=== PATIENT | male | born 1960 | race Caucasian/White ===

== ENCOUNTER 2017-12-31 21:41 | Inpatient (IN) ==
[2017-12-31] MEDS ORDERED: predniSONE 20 MG TABLET PO ONE (22:05)
[2017-12-31] MEDS ORDERED: Ipratropium/Albuterol Neb 3 ML IH ONE (22:05)
--- NOTE | 2017-12-31 22:11 | Emergency Department Note ---
Disposition Clinical Impression: Acute exacerbation of chronic obstructive airways disease Disposition: Admitted As Inpatient Condition: Fair Referrals: Jose Antonio Morgan MD [Primary Care Provider] - Forms: ED Satisfaction Letter Time of Disposition: 23:27 General Adult HPI - General Chief complaint: ED Shortness of Breath/Dyspnea Stated complaint: CP/SOB Time Seen by Provider: 12/31/17 21:56 Source: patient, family Nursing Notes Reviewed: Yes Vital Signs Reviewed: Yes - History of Present Illness HPI Narrative: History of present illness: 57-year-old male [id number] tobacco history is smoking 20 days ago presents the emergency department with several weeks of the feet swelling dyspnea on exertion and some chest discomfort much worse over the past 2 days. He said he saw his primary care provider week or so ago was diagnosed with "bronchitis and given albuterol which she says "has not done anything for me". Patient does not use oxygen at home. No known coronary artery disease. Heart scores about 4 or 5. Patient has bilateral crackles with some expiratory wheezing bilaterally. Patient denies nausea/vomiting/diarrhea/dysuria/new medications, ill contacts or recent travel. Patient just feels very tired. Pain Scale: 4 - Related Data Home Medications Medication Instructions Recorded Confirmed Elviteg/Cob/Emtri/Tenof Alafen 1 tab PO DAILY 08/25/17 12/16/17 [Genvoya Tablet] Fluconazole [Diflucan] 200 mg PO DAILY 08/25/17 12/16/17 Previous Rx's Medication Instructions Recorded Aspirin 81 mg PO DAILY #30 tab.chew 08/28/17 Clopidogrel [Plavix] 75 mg PO DAILY #30 tablet 08/28/17 Nitroglycerin 0.4 mg SL Q5MIN PRN #30 tab.subl 08/28/17 Fluconazole [Diflucan] 150 mg PO QWEEK #2 tab 12/06/17 Albuterol Sulfate [Albuterol 2 puff IH Q4HR #1 hfa.aer.ad 12/16/17 Inhaler] Levofloxacin [Levaquin] 750 mg PO DAILY #7 tablet 12/16/17 predniSONE [PredniSONE] 60 mg PO DAILY #15 tablet 12/16/17 Allergies Allergy/AdvReac Type Severity Reaction Status Date / Time sulfamethoxazole AdvReac Gastrointestinal Verified 08/25/17 09:04 [From Bactrim] Upset trimethoprim [From Bactrim] AdvReac Gastrointestinal Verified 08/25/17 09:04 Upset All systems ED: reviewed and negative except as stated. Constitutional: Reports: weakness, weight change Cardiovascular: Reports: chest pain Respiratory: Reports: cough, dyspnea, wheezes. Denies: sputum production Past Medical History - Past Medical History Attestation: Yes The following information was validated with the patient. Source: patient Medical history: Reports: arthritis, coronary artery disease, hepatitis, hyperlipidemia, myocardial infarction, other Surgical history: Reports: angioplasty/stent, tonsilectomy, other (Facial surgery, tonsillectomy) Psychiatric history: Reports: no psych history - Social History Smoking Status: Former smoker Smokeless Tobacco Status: No Alcohol use: Reports: none Drug use: Reports: none Physical Exam - General Limitations: no limitations General appearance: alert, in distress - Head Head exam: atraumatic, normocephalic - Eye Eye exam: Present: normal appearance, other (Patient has patch over left eye) - ENT ENT exam: normal exam, mucous membranes dry - Neck Neck exam: Present: normal inspection, full ROM - Chest Chest inspection: Present: normal inspection - Respiratory Respiratory exam: Present: wheezes, other (Bibasilar rales) - Cardiovascular Cardiovascular exam: Present: regular rate, normal rhythm - Abdominal Exam Abdominal exam: Present: soft, Non-Tender - Extremities Exam Extremities exam: Present: full ROM, pedal edema - Expanded Lower Extremity Exam Gait: not tested/not observed - Back Exam Back exam: Present: normal inspection, full ROM - Neurological Exam Neurological exam: Present: alert, oriented X3 - Psychiatric Psychiatric exam: Present: normal affect, normal mood - Skin Skin exam: Present: warm, dry, intact Course - Reevaluation(s) Reevaluation #1: Chest x-ray read by radiology as COPD with hyperinflation but no signs of infiltrate or effusion. CBC within normal limits. Awaiting troponin and chemistry panel. Time: 23:02 Reevaluation #2: ED workup was completed. Labs essentially within normal limits troponin negative BNP negative. Patient stable for short of breath even with minimal exertion. He does not have oxygen at home. Supplemental that is. Patient does prefer to be admitted hospitalist paged admission disposition pending Time: 23:26 Vital Signs Temperature 97.5 F L 12/31/17 21:46 Pulse Rate 98 12/31/17 21:46 Respiratory Rate 12/31/17 21:46 Blood Pressure 151/80 12/31/17 21:46 O2 Sat by Pulse Oximetry 95 12/31/17 21:46 Temperature 97.5 F L 12/31/17 22:35 Pulse Rate 94 12/31/17 22:35 Respiratory Rate 22 12/31/17 22:35 Blood Pressure 164/93 12/31/17 22:35 O2 Sat by Pulse Oximetry 99 12/31/17 22:35 Oxygen Delivery Oxygen Delivery Nasal Cannula Medical Decision Making - Medical Records Medical records reviewed: Yes I reviewed the patient's medical records. - Lab Data Lab results reviewed: Yes I reviewed the patient's lab results. Result diagrams: 12/31/17 22:29 12/31/17 22:29 Lab Results 12/31/17 12/31/17 12/31/17 Range/Units 22:29 22:29 22:29 WBC 5.0 (4.3-11.1) K/mcL RBC 4.45 (4.19-5.50) M/mcL Hgb 13.8 (12.9-16.9) g/dL Hct 40.3 (37.5-50.1) % MCV 90.6 (83.0-100.0) fL MCH 31.0 (28.0-33.3) pg MCHC 34.2 (31.6-35.5) g/dL RDW 14.3 (11.5-14.5) % Plt Count 164 (140-400) K/mcL MPV 9.9 (9.4-12.4) fL Immature Gran % 0.4 (0-4) % Seg Neutrophils % 67.6 % Lymphocytes % 9.8 % Monocytes % 11.0 % Eosinophils % 10.8 % Basophils % 0.4 % Neutrophils # 3.4 (1.6-8.9) K/mcL Lymphocytes # 0.5 L (0.6-4.6) K/mcL Monocytes # 0.6 (0.0-1.3) K/mcL Eosinophils # 0.5 (0.0-0.6) K/mcL Basophils # 0.0 (0.0-0.2) K/mcL Sodium 132 L (136-145) mEq/L Potassium 3.7 (3.5-5.1) mEq/L Chloride 100 (98-107) mEq/L Carbon Dioxide 26 (23-29) mEq/L BUN 18 (6-20) mg/dL Creatinine 1.05 (0.70-1.30) mg/dL Est GFR ( Amer) > 60 (> 60) Est GFR (Non-Af Amer) > 60 (> 60) BUN/Creatinine Ratio 17 (6-26) Glucose 108 H (70-105) mg/dL Calculated Osmolality 276 L (280-300) Lactic Acid 1.0 (0.5-2.2) mmol/L Calcium 9.0 (8.6-10.3) mg/dL Troponin I < 0.03 (< 0.04) ng/mL B-Natriuretic Peptide (Less than 100) pg/mL 12/31/17 Range/Units 22:29 WBC (4.3-11.1) K/mcL RBC (4.19-5.50) M/mcL Hgb (12.9-16.9) g/dL Hct (37.5-50.1) % MCV (83.0-100.0) fL MCH (28.0-33.3) pg MCHC (31.6-35.5) g/dL RDW (11.5-14.5) % Plt Count (140-400) K/mcL MPV (9.4-12.4) fL Immature Gran % (0-4) % Seg Neutrophils % % Lymphocytes % % Monocytes % % Eosinophils % % Basophils % % Neutrophils # (1.6-8.9) K/mcL Lymphocytes # (0.6-4.6) K/mcL Monocytes # (0.0-1.3) K/mcL Eosinophils # (0.0-0.6) K/mcL Basophils # (0.0-0.2) K/mcL Sodium (136-145) mEq/L Potassium (3.5-5.1) mEq/L Chloride (98-107) mEq/L Carbon Dioxide (23-29) mEq/L BUN (6-20) mg/dL Creatinine (0.70-1.30) mg/dL Est GFR ( Amer) (> 60) Est GFR (Non-Af Amer) (> 60) BUN/Creatinine Ratio (6-26) Glucose (70-105) mg/dL Calculated Osmolality (280-300) Lactic Acid (0.5-2.2) mmol/L Calcium (8.6-10.3) mg/dL Troponin I (< 0.04) ng/mL B-Natriuretic Peptide 48 (Less than 100) pg/mL - Radiology Data Radiology results reviewed: Yes I reviewed the patient's radiology results. - EKG Data EKG #1 EKG attestation: Yes I reviewed and interpreted this EKG. EKG results narrative: Twelve-lead EKG interpreted without the benefit of Cardiologic assistance shows the following: Sinus rhythm at 95 bpm. Incomplete right bundle branch block. Left ventricular hypertrophy by voltage criteria. Nonspecific ST-T changes. However no acute ischemic changes. No acute changes when compared to prior EKG dated 12/16/17.
[2017-12-31 22:44] LABS: Basophils % 0.4 %; Eosinophils # 0.5 K/mcL (0.0-0.6); Eosinophils % 10.8 %; Hematocrit 40.3 % (37.5-50.1); Hemoglobin 13.8 g/dL (12.9-16.9); Immature Granulocytes % 0.4 % (0-4); Lymphocytes # 0.5 K/mcL (0.6-4.6); Lymphocytes % 9.8 %; Mean Corpuscular HGB Conc 34.2 g/dL (31.6-35.5); Mean Corpuscular Volume 90.6 fL (83.0-100.0); Mean Platelet Volume 9.9 fL (9.4-12.4); Monocytes # 0.6 K/mcL (0.0-1.3); Neutrophils # 3.4 K/mcL (1.6-8.9); Platelet Count 164 K/mcL (140-400); Red Blood Count 4.45 M/mcL (4.19-5.50); Red Cell Distribution Width 14.3 % (11.5-14.5); Segmented Neutrophils % 67.6 %
[2017-12-31 23:05] LABS: BUN/Creatinine Ratio 17 (6-26); Blood Urea Nitrogen 18 mg/dL (6-20); Carbon Dioxide 26 mEq/L (23-29); Chloride 100 mEq/L (98-107); Glucose 108 mg/dL (70-105); Osmolality,Calculated 276 (280-300); Potassium 3.7 mEq/L (3.5-5.1); Sodium 132 mEq/L (136-145); eGFR For Non-African Americans > 60 (> 60)
[2017-12-31 23:07] LABS: Troponin I < 0.03 ng/mL (< 0.04)
[2018-01-01] MEDS ORDERED: Naloxone 0.4 MG/ML INJ IVP PRN (02:08)
[2018-01-01] MEDS ORDERED: Acetaminophen 325 MG TABLET PO PRN (02:08)
[2018-01-01] MEDS ORDERED: Nitroglycerin 0.4 MG TAB.SUBL SL PRN (02:09)
--- NOTE | 2018-01-01 02:14 | Internal Med History&Physical ---
Date of Encounter: 01/01/18 Time of Encounter: 02:11 Internal Medicine - H&P: HPI Chief complaint: shortness of breath History of present illness: Mr. Coats is a 57 year old male hx HIV and hep C presents with SOB and two weeks of wheezing and productive cough. He denies fever and chills - his fatigue is at baseline. His chest feels tight but no sharp pain. He came in today because of left arm and leg tingling that has resolved. He saw PCP one week ago and was diagnosed with bronchitis and give albuterol inhaler that did not help. He reports increasing pedal edema in last few days. In ED vitals, T 97.5 HR 98 Bp 151/80 RR22 and 97% on 2L. WBC 5, Na 132. Troponin and BNP normal. He remained on oxygen NC and given prednisone 60 mg and duoneb treatment. His last CD4 count at [facility] was 27 and he is on prophylactic Bactrim and azithromycin. He sees Dr Jose Antonio Peraza for treatment of HIV with Jammie and DR Marvin Burden at [facility] for Hep C with ciro. He has history of IV drug abuse and incarceration but has been clean since . He as diagnosed with both 4 months ago after screening. Quit smoking three weeks ago but has [id number] . Denies current EtOH use. He doesn' t know if he has never been diagnosed with COPD or CHF but last echo EF45-50. He had [place] on 08-25 followed by [facility] and staged stenting completed on 09-23. 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 Family history of father with NY at 53. He admits to constipation with last BM a few days ago without pain. Admits to increased urination since started lasix. Past Med Surg Social Fam HX - Past Medical History Medical history: arthritis, coronary artery disease, hepatitis, hyperlipidemia, myocardial infarction, other Additional medical history: hx bells palsy Psychiatric history: no psych history - Past Surgical History Surgical History: angioplasty/stent, tonsilectomy, other Additional surgical history: facial surgery - Social History Smoking Status: Former smoker Smokeless Tobacco Status: No Alcohol use: none Drug use: none - Family History Mother Living Status: Still Living Hx Family Medical Disorders: (CKD) Father Living Status: Hx Family Cardiac Disorders: Yes Internal Medicine - H&P: Meds Aspirin 81 mg PO DAILY #30 tab.chew 08/28/17 [Rx] Clopidogrel [Plavix] 75 mg PO DAILY #30 tablet 08/28/17 [Rx] Nitroglycerin 0.4 mg SL Q5MIN PRN #30 tab.subl 08/28/17 [Rx] Albuterol Sulfate [Albuterol Inhaler] 2 puff IH Q4HR #1 hfa.aer.ad 12/16/17 [Rx] Atorvastatin [Lipitor] 20 mg PO HS 12/31/17 [History] Azithromycin [Zithromax] 1,200 mg PO QWEEK 12/31/17 [History] Furosemide [Lasix] 20 mg PO BID 12/31/17 [History] Sulfamethoxazole/Trimeth DS [Bactrim DS] 1 each PO BID 12/31/17 [History] 3 Allergy/AdvReac Type Severity Reaction Status Date / Time sulfamethoxazole AdvReac Gastrointestinal Verified 12/31/17 23:52 [From Bactrim] Upset trimethoprim [From Bactrim] AdvReac Gastrointestinal Verified 12/31/17 23:52 Upset All Systems PM: A 10-system review of systems was performed and is negative for pertinent findings except as documented above in the HPI. - Constitutional Constitutional: no fatigue - Cardiovascular Cardiovascular ROS IM: dyspnea, no chest pain, no diaphoresis, no lightheadedness, no palpitations, no syncope - Respiratory Respiratory: cough, dyspnea, wheezing, excessive phlegm production - Gastrointestinal Gastrointestinal: constipation, no diarrhea, no nausea, no vomiting - Genitourinary Genitourinary ROS male: urinary frequency, no dysuria, no hematuria, no urinary incontinence - Musculoskeletal Musculoskeletal ROS IM: no numbness, no tingling - Integumentary Integumentary IM: no new lesions, no non-healing lesions, no rash - Neurological Neurological ROS: no frequent falls, no headache(s) - Constitutional Vitals: Temp Pulse Resp BP Pulse Ox 97.5 F L 95 14 139/82 97 01/01/18 00:14 01/01/18 00:14 01/01/18 00:14 01/01/18 00:14 01/01/18 00:14 General appearance: Present: A&O X 3, no acute distress, answers questions appropriately Exam: Patient has patch covering left eye and left face sagging. - Head Head exam: Present: atraumatic, normocephalic - ENT ENT exam: Present: mucous membranes moist, normal oropharynx - Respiratory Respiratory exam: Present: accessory muscle use, rales, wheezes. Absent: respiratory distress - Cardiovascular Cardiovascular exam: Present: diastolic murmur, RRR - GI/Abdominal GI/Abdominal exam: Present: normal bowel sounds, soft. Absent: mass, tenderness - Extremities Exam Extremities exam: Present: full ROM, pedal edema, radial pulses palpable and symmetrical. Absent: tenderness Additional comments: +1 pitting to the ankles bilat - Psychiatric Psychiatric exam: Present: normal affect, normal mood - Skin Skin exam: Absent: diaphoretic, erythema, excoriation Internal Med - H&P Results - Labs CBC & Chem 7: 12/31/17 22:29 12/31/17 22:29 - Assessment and plan (1) Acute respiratory failure with hypoxia Current Visit: Yes Status: Acute Assessment and plan: Most likely due to acute on CHF or undiagnosed COPD exacerbation but can not rule out PNA with particular concern for PCP. - continue oxygen - duonebs - prednisone 40mg daily Patient would benefit from transfer to hospital with ID specializing in HIV infections. He has previously been treated at [facility] and is amenable to transfer. (2) Acute exacerbation of chronic obstructive airways disease Current Visit: Yes Status: Suspected Assessment and plan: suspected based on symptoms and smoking history- may need out patient PFTs (3) HIV (human immunodeficiency virus infection) Current Visit: No Status: Acute Assessment and plan: Recent CD4 count of 27 at [facility] per patient, verified count of 48 on 11-17-17. If he has developed PCP then qualifies as AIDs -continue prophylactic bactrim and azithromycin (4) CHF (congestive heart failure) Current Visit: Yes Status: Acute Assessment and plan: BNP 48. May contribute to shortness of breath but not convicted of acute decompensation - continue Lasix 20 bid - consider addition of beta tip Qualifiers: Heart failure type: systolic Heart failure chronicity: chronic Qualified Code(s): I50.22 - Chronic systolic (congestive) heart failure (5) Constipation Current Visit: Yes Status: Acute Assessment and plan: miralax Qualifiers: Constipation type: unspecified constipation type Qualified Code(s): K59.00 - Constipation, unspecified (6) DVT prophylaxis Current Visit: Yes Status: Acute Assessment and plan: plavix - Time Spent With Patient Total time spent is greater than 50% in coordination of care (as documented) at patient's floor/unit and/or counseling patient: Greater than 35 minutes
[2018-01-01] MEDS: Ipratropium/Albuterol Neb 3 ML IH SCH ×4 (04:39→23:21)
[2018-01-01] MEDS ORDERED: Doxycycline 100 MG CAPSULE PO SCH (09:00)
[2018-01-01] MEDS: predniSONE 20 MG TABLET PO SCH (09:23)
[2018-01-01] MEDS: Sulfamethoxazole/Trimeth DS 1 EACH TABLET PO SCH ×2 (09:25→20:07)
[2018-01-01] MEDS: Furosemide 20 MG TABLET PO SCH ×2 (09:25→15:22)
[2018-01-01] MEDS: Aspirin 81 MG TAB.CHEW PO SCH (09:25)
--- NOTE | 2018-01-01 14:02 | Event Note ---
<Deny Alonso - Last Filed: 01/01/18 15:31> Date of Encounter: 01/01/18 I examined this patient and my medical decision-making was reviewed with the Resident Physician on 01/01/18. I agree with the documented findings, disposition and treatment plan as described except to the extent set forth below. Mr Coats is currently in observation for presumed COPD exacerbation. Exam alert. Comfortable at this time Agree with assessment and plan as above and in H&P Pt's physician who manages HIV is at [facility] (ID physician). <Rosalba MuhammadRoger - Last Filed: 01/01/18 19:34> Date of Encounter: 01/01/18 Time of Encounter: 09:45 S: Admitted for acute resp failure with hypoxia likely 2/2 obstructive exacerbation (does endorse 43 pack year history), he states the breathing treatments help but he gets short of breath on ambulation (unremarkable bnp and other basic chemistries, no cardiomegaly on cxr). O: Head exam: Present: atraumatic, normocephalic Eye exam: Present: PERRL, conjuntiva pink, sclera anicteric, EOMI Mouth exam: no plaques Neck exam Present: supple, trachea midline. Absent: lymphadenopathy Respiratory exam: Present: bilateral wheeze, diminished breath sounds bilaterally, normal chest wall excursion. Cardiovascular exam: Present: RRR, +S1, +S2. Absent: diastolic murmur, gallop, rubs, systolic murmur GI/Abdominal exam: Present: normal bowel sounds, soft, no peritoneal signs. Absent: distended, tenderness Extremities exam: Present: warm, radial pulses palpable and symmetrical. Absent : calf tenderness, cyanotic, pedal edema Neurological exam: Present: CN II-XII intact, oriented X3, no focal deficits. Absent: facial droop, speech deficit Skin exam: Present: dry, intact, heavy scale on face and arms A&P: (1) Acute respiratory failure with hypoxia Most likely due to acute on chronic undiagnosed COPD exacerbation but can not rule out PNA with particular concern for PCP. Continue oxygen duonebs prednisone 40mg daily Plan to keep overnight, continue [facility]Y [facility]OWER (2) Acute exacerbation of chronic obstructive airways disease hyperinflated lungs on CXR suspected based on symptoms and smoking history 43 pack year history, last tobacco product 1 month ago (3) HIV (human immunodeficiency virus infection) Recent CD4 count of 27 at [facility] per patient, verified count of 48 on 11-17-17. If he has developed PCP then qualifies as AIDs Continue prophylactic bactrim and azithromycin Will give Truvada today as this is in our dispensary. He plans to have family bring his Genvoya tomorrow AM (4) Hep C Follows Dr. Trent in [facility] (ID) He plans to have family friend [facility] tomorrow AM (5) Seborrheic Dermatitis Continuing Ketoconazole 2% cream, shampoo, and low dose steroid cream (6) DVT prophylaxis plavix
[2018-01-01] MEDS: Nystatin SUSP 5 ML UD.LIQ PO SCH ×3 (15:21→20:09)
[2018-01-01] MEDS ORDERED: LEDIPASVIR PO SCH (15:45)
[2018-01-01] MEDS ORDERED: [UNRECOGNIZED DRUG - OTHER] PO SCH (15:45)
[2018-01-01] MEDS ORDERED: SOFOSBUVIR PO SCH (15:45)
[2018-01-01] MEDS ORDERED: [UNRECOGNIZED DRUG - OTHER] PO SCH (15:45)
[2018-01-01] MEDS ORDERED: Ketoconazole Shampoo 120 ML BOTTLE TP PRN (16:12)
[2018-01-01] MEDS: Ketoconazole 2% CRM 15 GM TUBE TP SCH (17:10)
[2018-01-02] MEDS: Ipratropium/Albuterol Neb 3 ML IH SCH ×4 (04:48→22:22)
[2018-01-02 07:34] LABS: Basophils % 0.7 %; Eosinophils # 0.2 K/mcL (0.0-0.6); Eosinophils % 4.9 %; Hematocrit 34.6 % (37.5-50.1); Immature Granulocytes % 0.3 % (0-4); Lymphocytes # 0.4 K/mcL (0.6-4.6); Lymphocytes % 13.8 %; Mean Corpuscular HGB Conc 33.2 g/dL (31.6-35.5); Mean Corpuscular Volume 90.3 fL (83.0-100.0); Mean Platelet Volume 9.7 fL (9.4-12.4); Monocytes # 0.3 K/mcL (0.0-1.3); Monocytes % 11.1 %; Neutrophils # 2.1 K/mcL (1.6-8.9); Platelet Count 147 K/mcL (140-400); Red Blood Count 3.83 M/mcL (4.19-5.50); Red Cell Distribution Width 14.5 % (11.5-14.5); Segmented Neutrophils % 69.2 %
[2018-01-02 07:36] LABS: Hemoglobin 11.5 g/dL (12.9-16.9)
[2018-01-02 07:59] LABS: Alanine Aminotransferase 12 Units/L (7-52); Albumin 2.9 g/dL (3.5-5.7); Albumin/Globulin Ratio 0.8 (1.1-2.2); Alkaline Phosphatase 78 Units/L (34-104); Aspartate Amino Transferase 15 Units/L (13-39); BUN/Creatinine Ratio 19 (6-26); Bilirubin,Total 0.3 mg/dL (0.3-1.0); Blood Urea Nitrogen 18 mg/dL (6-20); Calcium 8.7 mg/dL (8.6-10.3); Carbon Dioxide 29 mEq/L (23-29); Chloride 104 mEq/L (98-107); Globulin 3.5 g/dL (2.4-3.5); Glucose 98 mg/dL (70-105); Osmolality,Calculated 286 (280-300); Potassium 3.7 mEq/L (3.5-5.1); Sodium 137 mEq/L (136-145); Total Protein 6.4 g/dL (6.4-8.9); eGFR For Non-African Americans > 60 (> 60)
--- NOTE | 2018-01-02 08:45 | Internal Med Progress Note ---
<Deny Alonso - Last Filed: 01/02/18 17:54> Hospitalist Progress Note - Encounter Date of Encounter: 01/02/18 - Exam Vitals: Temp Pulse Resp BP Pulse Ox 97.4 F L 99 16 138/67 94 01/02/18 11:49 01/02/18 11:49 01/02/18 11:49 01/02/18 11:49 01/02/18 11:49 - Assessment and Plan (1) Acute respiratory failure with hypoxia Current Visit: Yes Status: Acute (2) Acute exacerbation of chronic obstructive airways disease Current Visit: Yes Status: Acute (3) HIV (human immunodeficiency virus infection) Current Visit: No Status: Chronic (4) CAD (coronary artery disease) Current Visit: No Status: Chronic (5) Severe protein-calorie malnutrition Current Visit: Yes Status: Suspected - Time Spent with Patient Total time spent is greater than 50% in coordination of care (as documented) at patient's floor/unit and/or counseling patient: Internal Medicine: Result - Labs CBC & Chem 7: 01/02/18 07:01 01/02/18 07:01 Labs: Short CBC 01/02/18 Range/Units 07:01 WBC 3.1 L (4.3-11.1) K/mcL Hgb 11.5 L D (12.9-16.9) g/dL Hct 34.6 L (37.5-50.1) % Plt Count 147 (140-400) K/mcL Neutrophils # 2.1 (1.6-8.9) K/mcL BMP 01/02/18 07:01 Sodium 137 Potassium 3.7 Chloride 104 Carbon Dioxide 29 BUN 18 Creatinine 0.95 Glucose 98 Calcium 8.7 Liver Function 01/02/18 Range/Units 07:01 Total Bilirubin 0.3 (0.3-1.0) mg/dL AST 15 (13-39) Units/L ALT 12 (7-52) Units/L Alkaline Phosphatase 78 (34-104) Units/L Albumin 2.9 L (3.5-5.7) g/dL Consult Discharge Plan - Plan Referrals: Jose Antonio Morgan MD [Primary Care Provider] - (Requested a follow up appointment in 7-10 days. ) Prescriptions: Tiotropium [Spiriva] 18 mcg IH DAILY #30 capsule - Attending Attestation I examined this patient and my medical decision-making was reviewed with the Resident Physician on 01/02/18. I agree with the documented findings, disposition and treatment plan as described except to the extent set forth below. Mr Coats is currently admitted for presumed acute exac COPD. He remains moderate to high risk due to potential for worsening clinical status. Mr Coats is resting comfortably. No fever or chills. No CP. Breathing has improved with treatment. Still with cough. No GI issues. Exam alert Comfortable Mucus membranes dry Heart reg No wheeze now Abd soft No edema I/P 1. Exac COPD 2. Hypoxic resp failure - check for home oxygen. Further diagnoses and plan as above. <Roger Muhammad - Last Filed: 01/02/18 18:17> Hospitalist Progress Note - Encounter Date of Encounter: 01/02/18 Time of Encounter: 11:30 - Subjective Interval History: Mr. Coats slept well last night but wheezes/coughs when talking is prolonged, lying flat worsens his symptoms. Unremarkable BNP, no cardiomegaly on CXR. No abd pain, joint pain, new skin lesions, or oral plaques. - Exam Vitals: Temp Pulse Resp BP Pulse Ox 97.7 F 83 16 113/67 96 01/02/18 07:55 01/02/18 07:55 01/02/18 07:55 01/02/18 07:55 01/02/18 07:55 Exam: Head exam: Present: atraumatic, normocephalic Eye exam: Present: PERRL, conjuntiva pink, sclera anicteric, EOMI, eye patch L Face exam: facial droop chronic L, hx schwannoma Mouth exam: no plaques Neck exam Present: supple, trachea midline. Absent: lymphadenopathy Respiratory exam: Present: bilateral wheeze, diminished breath sounds bilaterally, normal chest wall excursion. Cardiovascular exam: Present: RRR, +S1, +S2. Absent: diastolic murmur, gallop, rubs, systolic murmur GI/Abdominal exam: Present: normal bowel sounds, soft, no peritoneal signs. Absent: distended, tenderness Extremities exam: Present: warm, radial pulses palpable and symmetrical. Absent : calf tenderness, cyanotic, pedal edema Neurological exam: Present: oriented X3, facial asymmetry known. No speech deficit Skin exam: Present: dry, intact, heavy scale on face and arms - Assessment and Plan (1) Acute respiratory failure with hypoxia Current Visit: Yes Status: Acute Assessment and Plan: Most likely due to acute on chronic undiagnosed COPD exacerbation but can not rule out PNA with particular concern for PCP. Continue oxygen duonebs prednisone 40mg daily O2 walk test today Spiriva Rx in hard chart for discharge possible tomorrow (has [facility] appt with Dr. Aguayo, Infectious Disease Wednesday) (2) HIV (human immunodeficiency virus infection) Current Visit: No Status: Chronic Assessment and Plan: Recent CD4 count of 27 at [facility] per patient, verified count of 48 on 11-17-17. If he has developed PCP then qualifies as AIDs Continue prophylactic bactrim and azithromycin Truvada until pt can get his home Genvoya (states family friend is bring in today 01/02) (3) Chronic hepatitis C Current Visit: Yes Status: Acute Assessment and Plan: [facility] W[facility]U ? home med, family friend arriving today per patient DVT Prophylaxis: plavix - Time Spent with Patient Total time spent is greater than 50% in coordination of care (as documented) at patient's floor/unit and/or counseling patient: Internal Medicine: Result - Labs CBC & Chem 7: 01/02/18 07:01 01/02/18 07:01 Labs: Short CBC 01/02/18 Range/Units 07:01 WBC 3.1 L (4.3-11.1) K/mcL Hgb 11.5 L D (12.9-16.9) g/dL Hct 34.6 L (37.5-50.1) % Plt Count 147 (140-400) K/mcL Neutrophils # 2.1 (1.6-8.9) K/mcL BMP 01/02/18 07:01 Sodium 137 Potassium 3.7 Chloride 104 Carbon Dioxide 29 BUN 18 Creatinine 0.95 Glucose 98 Calcium 8.7 Liver Function 01/02/18 Range/Units 07:01 Total Bilirubin 0.3 (0.3-1.0) mg/dL AST 15 (13-39) Units/L ALT 12 (7-52) Units/L Alkaline Phosphatase 78 (34-104) Units/L Albumin 2.9 L (3.5-5.7) g/dL <Deny Alonso - Raul Filed: 01/02/18 17:54> (4) CAD (coronary artery disease) Qualifiers: Coronary Disease-Associated Artery/Lesion type: [place] artery [place] vs. transplanted heart: [place] heart Associated angina: without angina Qualified Code(s): I25.10 - Atherosclerotic heart disease of [place] coronary artery without angina pectoris
[2018-01-02] MEDS: Nystatin SUSP 5 ML UD.LIQ PO SCH ×4 (08:48→21:40)
[2018-01-02] MEDS: Sulfamethoxazole/Trimeth DS 1 EACH TABLET PO SCH ×2 (08:49→21:40)
[2018-01-02] MEDS: predniSONE 20 MG TABLET PO SCH (08:49)
[2018-01-02] MEDS: Aspirin 81 MG TAB.CHEW PO SCH (08:49)
[2018-01-02] MEDS: Furosemide 20 MG TABLET PO SCH ×2 (08:49→17:14)
[2018-01-02] MEDS: Ketoconazole 2% CRM 15 GM TUBE TP SCH (08:51)
[2018-01-03] MEDS: Ipratropium/Albuterol Neb 3 ML IH SCH ×4 (05:29→22:31)
[2018-01-03 07:15] LABS: Hematocrit 36.9 % (37.5-50.1); Hemoglobin 12.2 g/dL (12.9-16.9); Mean Corpuscular HGB Conc 33.1 g/dL (31.6-35.5); Mean Corpuscular Hemoglobin 30.3 pg (28.0-33.3); Mean Corpuscular Volume 91.8 fL (83.0-100.0); Mean Platelet Volume 10.2 fL (9.4-12.4); Platelet Count 145 K/mcL (140-400); Red Blood Count 4.02 M/mcL (4.19-5.50); Red Cell Distribution Width 14.4 % (11.5-14.5)
[2018-01-03 07:37] LABS: BUN/Creatinine Ratio 21 (6-26); Blood Urea Nitrogen 20 mg/dL (6-20); Calcium 8.7 mg/dL (8.6-10.3); Carbon Dioxide 28 mEq/L (23-29); Chloride 104 mEq/L (98-107); Glucose 92 mg/dL (70-105); Osmolality,Calculated 282 (280-300); Potassium 3.9 mEq/L (3.5-5.1); Sodium 135 mEq/L (136-145); eGFR For Non-African Americans > 60 (> 60)
[2018-01-03] MEDS: Aspirin 81 MG TAB.CHEW PO SCH (08:00)
[2018-01-03] MEDS: Furosemide 20 MG TABLET PO SCH ×2 (08:00→17:39)
[2018-01-03] MEDS: predniSONE 20 MG TABLET PO SCH (08:00)
[2018-01-03] MEDS: Ketoconazole 2% CRM 15 GM TUBE TP SCH (08:00)
[2018-01-03] MEDS: Sulfamethoxazole/Trimeth DS 1 EACH TABLET PO SCH ×2 (08:00→19:58)
[2018-01-03] MEDS: Nystatin SUSP 5 ML UD.LIQ PO SCH ×4 (08:00→19:58)
--- NOTE | 2018-01-03 08:30 | Discharge Summary ---
Date of Encounter: 01/03/18 Time of Encounter: 08:00 - Discharge Diagnosis (1) Acute exacerbation of chronic obstructive airways disease Priority: Primary Status: Acute (2) Acute respiratory failure with hypoxia Priority: Primary Status: Acute (3) HIV (human immunodeficiency virus infection) Priority: Secondary Status: Chronic (4) Chronic hepatitis C Priority: Secondary Status: Acute Hospital course: Mr. Coats is a 57 year old male PMHx HIV, STEMI, CAD, chronic smoker, COPD, chronic hepatitis C, IVD user presented with SOB breath and wheezing of 2 weeks. Last CD count at [facility] was 27 and he is on prophylactic Bactrim and azithromycin. He is on Genvoya for HIV ad Harboni for Hep C. His wheezing and SOB has improved with duonebs, O2 and prednisone but he continues to be SOB and tachycardic with ambulation and when not on O2. Today, he reports that he is doing well on 2L O2, but feels worried that his SOB will worsen if he goes home without oxygen. He has appointment for endoscopy tomorrow. He denies confusion, headaches, blurry vision, CP, abdominal pain, diarrhea, f/c/n/v. Discharge discussed with: patient Time spent discussing smoking cessation with patient: more than 10 minutes - Time Spent with Patient Total time spent providing and/or coordinating discharge services: Greater than 30 minutes - Discharge Medications Prescriptions: Tiotropium [Spiriva] 18 mcg IH DAILY #30 capsule Home Medications: Aspirin 81 mg PO DAILY #30 tab.chew 08/28/17 [Rx] Clopidogrel [Plavix] 75 mg PO DAILY #30 tablet 08/28/17 [Rx] Nitroglycerin 0.4 mg SL Q5MIN PRN #30 tab.subl 08/28/17 [Rx] Albuterol Sulfate [Albuterol Inhaler] 2 puff IH Q4HR #1 hfa.aer.ad 12/16/17 [Rx] Atorvastatin [Lipitor] 20 mg PO HS 12/31/17 [History] Azithromycin [Zithromax] 1,200 mg PO QWEEK 12/31/17 [History] Furosemide [Lasix] 20 mg PO BID 12/31/17 [History] Sulfamethoxazole/Trimeth DS [Bactrim DS] 1 tab PO BID 12/31/17 [History] Elviteg/Cob/Emtri/Tenof Alafen [Genvoya Tablet] 1 tab PO DAILY 01/01/18 [History ] Ledipasvir/Sofosbuvir [Harvoni 90-400 mg Tablet] 1 tab PO DAILY 01/01/18 [ History] Tiotropium [Spiriva] 18 mcg IH DAILY #30 capsule 01/02/18 [Rx] Allergies/Adverse Reactions: 3 Allergy/AdvReac Type Severity Reaction Status Date / Time sulfamethoxazole AdvReac Gastrointestinal Verified 12/31/17 23:52 [From Bactrim] Upset trimethoprim [From Bactrim] AdvReac Gastrointestinal Verified 12/31/17 23:52 Upset Date of admission: 01/01/18 17:37 Primary care physician: Jose Antonio Morgan MD Discharging clinician: Segundo Figueroa Anticipated date of discharge: 01/03/18 - Constitutional Vitals: Temp Pulse Resp BP Pulse Ox 97.8 F 98 5 112/64 94 01/03/18 06:42 01/03/18 06:42 01/03/18 06:42 01/03/18 06:42 01/03/18 06:42 General appearance: Present: A&O X 3, no acute distress, answers questions appropriately - Head Head exam: Present: atraumatic - Respiratory Respiratory exam: Present: wheezes (wheezing bilaterally ). Absent: accessory muscle use, rales - Cardiovascular Cardiovascular exam: Present: RRR, +S1, +S2. Absent: systolic murmur - GI/Abdominal GI/Abdominal exam: Present: normal bowel sounds, soft. Absent: guarding - Extremities Exam Extremities exam: Present: warm, radial pulses palpable and symmetrical - Neurological Exam Neurological exam: Present: alert, CN II-XII intact, oriented X3, no focal deficits. Absent: motor sensory deficit, pronater drift - Psychiatric Psychiatric exam: Present: normal affect, normal mood - Skin Skin exam: Present: dry, intact, normal color - Patient Status Disposition: Home, Self-Care Condition: Fair Functional capacity at discharge: independent ambulation Overall status at discharge: patient is progressing back to baseline - Discharge Instructions Follow Up With: Jose Antonio Morgan MD [Primary Care Provider] - (Requested a follow up appointment in 7-10 days. ) - Diet and Activity Activity: resume usual activities as tolerated, wear oxygen at all times, wear oxygen at night Diet: advance to your usual diet
--- NOTE | 2018-01-03 14:23 | Internal Med Progress Note ---
<Segundo Figueroa - Last Filed: 01/03/18 14:18> Hospitalist Progress Note - Encounter Date of Encounter: 01/03/18 Time of Encounter: 09:30 - Subjective Interval History: Mr. Coats is a 57 year old male PMHx HIV, STEMI, CAD, chronic smoker, COPD, chronic hepatitis C, IVD user presented with SOB breath and wheezing of 2 weeks. Last CD count at [facility] was 27 and he is on prophylactic Bactrim and azithromycin. He is on Genvoya for HIV ad Harboni for Hep C. His wheezing and SOB has improved with duonebs, O2 and prednisone but he continues to be SOB and tachycardic with ambulation and when not on O2. Today, he reports that he is doing well on 2L O2, but feels worried that his SOB will worsen if he goes home without oxygen. He has appointment for endoscopy tomorrow. He denies confusion, headaches, blurry vision, CP, abdominal pain, diarrhea, f/c/n/v. Requesting to have endoscopy done here at [facility] instead. - Exam Vitals: Temp Pulse Resp BP Pulse Ox 97.8 F 98 16 112/64 93 01/03/18 06:42 01/03/18 06:42 01/03/18 10:51 01/03/18 06:42 01/03/18 10:51 Exam: General appearance: Present: A&O X 3, no acute distress, answers questions appropriately - Head Head exam: Present: atraumatic - Respiratory Respiratory exam: Present: wheezes (wheezing bilaterally ). Absent: accessory muscle use, rales - Cardiovascular Cardiovascular exam: Present: RRR, +S1, +S2. Absent: systolic murmur - GI/Abdominal GI/Abdominal exam: Present: normal bowel sounds, soft. Absent: guarding - Extremities Exam Extremities exam: Present: warm, radial pulses palpable and symmetrical - Neurological Exam Neurological exam: Present: alert, CN II-XII intact, oriented X3, no focal deficits. Absent: motor sensory deficit, pronater drift - Psychiatric Psychiatric exam: Present: normal affect, normal mood - Skin Skin exam: Present: dry, intact, normal color - Assessment and Plan (1) Acute exacerbation of chronic obstructive airways disease Current Visit: Yes Status: Acute Assessment and Plan: Improved. Patient did not qualify for home O2. Will continue him on O2 as needed. Continue with Prednisone day #3, duonebs. Patient to have EGD performed her at [facility] instead of [facility] per his request. Retirement Sales Consultant has been informed. He is able to obtain Harvoni therapy for chronic hepatitis C here. Continue with Bactrim for PCP prophylaxis. (2) Acute respiratory failure with hypoxia Current Visit: Yes Status: Acute Assessment and Plan: See above. (3) HIV (human immunodeficiency virus infection) Current Visit: No Status: Chronic Assessment and Plan: Continue with azithromycin and bactrim for prophylaxis. Harvoni for Chronic hep C. Continue with Truvada therapy. Ketoconazole for possible GI fungal/debbie infection. Pending EGD. (4) Chronic hepatitis C Current Visit: Yes Status: Acute Assessment and Plan: See above. Pending hep C quant. DVT Prophylaxis: plavix - Time Spent with Patient Total time spent is greater than 50% in coordination of care (as documented) at patient's floor/unit and/or counseling patient: Greater than 35 minutes Plan of Care Discussed with: patient Internal Medicine: Result - Labs CBC & Chem 7: 01/03/18 06:37 01/03/18 06:37 Labs: Short CBC 01/03/18 Range/Units 06:37 WBC 3.1 L (4.3-11.1) K/mcL Hgb 12.2 L (12.9-16.9) g/dL Hct 36.9 L (37.5-50.1) % Plt Count 145 (140-400) K/mcL BMP 01/03/18 06:37 Sodium 135 L Potassium 3.9 Chloride 104 Carbon Dioxide 28 BUN 20 Creatinine 0.94 Glucose 92 Calcium 8.7 Consult Discharge Plan - Plan Instructions: Tiotropium (By breathing) Referrals: Jose Antonio Morgan MD [Primary Care Provider] - 01/05/18 1:20 pm (Requested a follow up appointment in 7-10 days. ) Prescriptions: Tiotropium [Spiriva] 18 mcg IH DAILY #30 capsule <Deny Alonso - Last Filed: 01/03/18 15:03> Hospitalist Progress Note - Encounter Date of Encounter: 01/03/18 - Exam Vitals: Temp Pulse Resp BP Pulse Ox 97.8 F 98 16 112/64 93 01/03/18 06:42 01/03/18 06:42 01/03/18 10:51 01/03/18 06:42 01/03/18 10:51 - Assessment and Plan (1) Acute respiratory failure with hypoxia Current Visit: Yes Status: Ruled-out (2) Acute exacerbation of chronic obstructive airways disease Current Visit: Yes Status: Acute (3) HIV (human immunodeficiency virus infection) Current Visit: No Status: Chronic (4) CAD (coronary artery disease) Current Visit: No Status: Chronic (5) Severe protein-calorie malnutrition Current Visit: Yes Status: Suspected (6) Hepatitis C Current Visit: Yes Status: Chronic - Time Spent with Patient Total time spent is greater than 50% in coordination of care (as documented) at patient's floor/unit and/or counseling patient: Internal Medicine: Result - Labs CBC & Chem 7: 01/03/18 06:37 01/03/18 06:37 Labs: Short CBC 01/03/18 Range/Units 06:37 WBC 3.1 L (4.3-11.1) K/mcL Hgb 12.2 L (12.9-16.9) g/dL Hct 36.9 L (37.5-50.1) % Plt Count 145 (140-400) K/mcL BMP 01/03/18 06:37 Sodium 135 L Potassium 3.9 Chloride 104 Carbon Dioxide 28 BUN 20 Creatinine 0.94 Glucose 92 Calcium 8.7 - Attending Attestation I examined this patient and my medical decision-making was reviewed with the Resident Physician on 01/03/18. I agree with the documented findings, disposition and treatment plan as described except to the extent set forth below. Mr Coats is currently admitted for presumed COPD exacerbation. He remains moderate to high risk due to potential for worsening clinical status. Mr Coats is still very dyspneic he feels. He did not qualify for oxygen. No CP. No fever or chills. Still coughing. Review of chart shows he had L arm and chest pain. Will do more cardiac work up. Exam alert Comfortable Mucus membranes dry Heart reg Lungs clear at this time Abd soft I/P 1. COPD exac 2. Chest pain - check echo. GI eval for possible candidal esophagitis. Further diagnoses and plan as above. <Deny Alonso A - Last Filed: 01/03/18 15:03> (4) CAD (coronary artery disease) Qualifiers: Coronary Disease-Associated Artery/Lesion type: [place] artery [place] vs. transplanted heart: [place] heart Associated angina: without angina Qualified Code(s): I25.10 - Atherosclerotic heart disease of [place] coronary artery without angina pectoris (6) Hepatitis C Qualifiers: Viral hepatitis chronicity: chronic Hepatic coma status: without hepatic coma Qualified Code(s): B18.2 - Chronic viral hepatitis C
--- NOTE | 2018-01-03 17:41 | Electrocardiograph Report ---
[place] [id number] Test Date: 2017-12-31 Pat Name: Cole Coats Department: 104 Room: 3B Gender: M Senior [employer] Developer: : 1960 Requested By: Neno Bardales Order Number: [id number] Reading MD: Gladys Pineda Measurements Intervals [place] Rate: 95 P: 84 [place]: 135 QRS: 82 QRSD: 106 T: 55 QT: 350 QTc: 403 Interpretive Statements SINUS RHYTHM INCOMPLETE RIGHT BUNDLE BRANCH BLOCK POSSIBLE LEFT VENTRICULAR HYPERTROPHY Electronically Signed On 01-03-2018 17:40:17 EDT by Gladys Pineda
[2018-01-04] MEDS: Ipratropium/Albuterol Neb 3 ML IH SCH ×4 (04:26→22:03)
--- NOTE | 2018-01-04 08:15 | Internal Med Progress Note ---
<Segundo Figueroa - Last Filed: 01/04/18 13:36> Hospitalist Progress Note - Encounter Date of Encounter: 01/04/18 Time of Encounter: 08:00 - Subjective Interval History: Patient is NPO for possible EGD for screening Debbie esophagitis. He did not qualify for home O2 yesterday. Continue to report tachycardia and SOB with ambulation. Voiding without difficulty. +BM. No fever, chills, nausea, vomiting , CP, cough, headaches, confusion. No further acute events or complaints. - Exam Vitals: Temp Pulse Resp BP Pulse Ox 98.8 F 99 18 120/74 96 01/04/18 08:02 01/04/18 08:02 01/04/18 08:02 01/04/18 08:02 01/04/18 08:02 Exam: General appearance: Present: A&O X 3, no acute distress, answers questions appropriately - Head Head exam: Present: atraumatic - Respiratory Respiratory exam: Present: wheezes (wheezing bilaterally ). Absent: accessory muscle use, rales - Cardiovascular Cardiovascular exam: Present: RRR, +S1, +S2. Absent: systolic murmur - GI/Abdominal GI/Abdominal exam: Present: normal bowel sounds, soft. Absent: guarding - Extremities Exam Extremities exam: Present: warm, radial pulses palpable and symmetrical - Neurological Exam Neurological exam: Present: alert, CN II-XII intact, oriented X3, no focal deficits. Absent: motor sensory deficit, pronater drift - Psychiatric Psychiatric exam: Present: normal affect, normal mood - Skin Skin exam: Present: dry, intact, normal color - Assessment and Plan (1) Acute exacerbation of chronic obstructive airways disease Current Visit: Yes Status: Acute Assessment and Plan: Improved. Patient did not qualify for home O2 yesterday. Satting well on 2L [place]. Will continue him on O2 as needed. CXR yesterday without acute cardiopulmonary disease. Continue with Prednisone day #4, duonebs. Patient is NPO for possible EGD for debbie esophagitis. Dr. Vaughn informed. Also confirmed that he is able to obtain Harvoni therapy for his chronic hepatitis C here. He will switch his care from [facility] to [facility]. Continue with Bactrim for PCP prophylaxis. EGD demonstrates 2 cm hiatal hernia, mild Schatzki ring, biopsy was contraindicated as patient was on aspirin and Plavix, GI recommended for repeat upper endoscopy after patient is off anticoagulants. Likely discharged tomorrow. (2) Acute respiratory failure with hypoxia Current Visit: Yes Status: Acute Assessment and Plan: See above. (3) HIV (human immunodeficiency virus infection) Current Visit: No Status: Chronic Assessment and Plan: He had azithromycin and is on bactrim for prophylaxis. Harvoni for Chronic hep C. Continue with Truvada therapy. Ketoconazole for possible GI fungal/debbie infection. Pending EGD. (4) Chronic hepatitis C Current Visit: Yes Status: Acute Assessment and Plan: See above. Pending hep C quant. DVT Prophylaxis: plavix - Time Spent with Patient Total time spent is greater than 50% in coordination of care (as documented) at patient's floor/unit and/or counseling patient: Greater than 35 minutes Plan of Care Discussed with: patient Internal Medicine: Result - Labs CBC & Chem 7: 01/03/18 06:37 01/03/18 06:37 - Impressions Impressions Chest X-Ray 01/03/18 14:40 IMPRESSION: Question of COPD. No acute cardiopulmonary disease. D/ / Jairo Simpson MD / Jairo Simpson MD Interpreting Provider: Jairo Simpson MD Consult Discharge Plan - Plan Instructions: Tiotropium (By breathing) Referrals: Jose Antonio Morgan MD [Primary Care Provider] - 01/05/18 1:20 pm (Requested a follow up appointment in 7-10 days. ) Prescriptions: Tiotropium [Spiriva] 18 mcg IH DAILY #30 capsule <Albert Darby - Last Filed: 01/04/18 17:18> Hospitalist Progress Note - Encounter Date of Encounter: 01/04/18 - Exam Vitals: Temp Pulse Resp BP Pulse Ox 97.6 F 94 19 115/66 99 01/04/18 16:30 01/04/18 16:30 01/04/18 16:30 01/04/18 16:30 01/04/18 16:30 - Assessment and Plan (1) HIV (human immunodeficiency virus infection) Current Visit: No Status: Chronic (2) CAD (coronary artery disease) Current Visit: No Status: Chronic (3) Acute exacerbation of chronic obstructive airways disease Current Visit: Yes Status: Acute (4) Acute respiratory failure with hypoxia Current Visit: Yes Status: Ruled-out (5) Severe protein-calorie malnutrition Current Visit: Yes Status: Suspected (6) Hepatitis C Current Visit: Yes Status: Chronic - Time Spent with Patient Total time spent is greater than 50% in coordination of care (as documented) at patient's floor/unit and/or counseling patient: Internal Medicine: Result - Labs CBC & Chem 7: 01/03/18 06:37 01/03/18 06:37 - Impressions Impressions Chest X-Ray 01/03/18 14:40 IMPRESSION: Question of COPD. No acute cardiopulmonary disease. D/ / Jairo Simpson MD / Jairo Simpson MD Interpreting Provider: Jairo Simpson MD - Attending Attestation I performed an independent interview and exam of this patient. I am in agreement with the findings, assessment, and plan of Dr. Figueroa, internal medicine resident. Patient's breathing is improved. EGD showed gastritis and treatment is started. No evidence of candidal esophagitis. Patient is now tolerating a diet and is stable for discharge once arrangements are made. All esle as outlined in note. Gen NAD, AAOx3 Lung CTAB HT RRR Abd NT Ext no sig edema - Assessment and Plan (1) Acute exacerbation of chronic obstructive airways disease Current Visit: Yes Status: Acute Assessment and Plan: Improved. Patient did not qualify for home O2 yesterday. Satting well on 2L NC. Will continue him on O2 as needed. CXR yesterday without acute cardiopulmonary disease. Continue with Prednisone day #4, duonebs. Patient is NPO for possible EGD for debbie esophagitis. Dr. Vaughn informed. Also confirmed that he is able to obtain Harvoni therapy for his chronic hepatitis C here. He will switch his care from [facility] to [facility]. Continue with Bactrim for PCP prophylaxis. EGD demonstrates 2 cm hiatal hernia, mild Schatzki ring, biopsy was contraindicated as patient was on aspirin and Plavix, GI recommended for repeat upper endoscopy after patient is off anticoagulants. Likely discharged tomorrow. (2) Acute respiratory failure with hypoxia Current Visit: Yes Status: Acute Assessment and Plan: See above. (3) HIV (human immunodeficiency virus infection) Current Visit: No Status: Chronic Assessment and Plan: He had azithromycin and is on bactrim for prophylaxis. Harvoni for Chronic hep C. Continue with Truvada therapy. Ketoconazole for possible GI fungal/debbie infection. Pending EGD. <Albert Darby R - Last Filed: 01/04/18 17:18> (2) CAD (coronary artery disease) Qualifiers: Coronary Disease-Associated Artery/Lesion type: [place] artery [place] vs. transplanted heart: [place] heart Associated angina: without angina Qualified Code(s): I25.10 - Atherosclerotic heart disease of [place] coronary artery without angina pectoris (6) Hepatitis C Qualifiers: Viral hepatitis chronicity: chronic Hepatic coma status: without hepatic coma Qualified Code(s): B18.2 - Chronic viral hepatitis C
[2018-01-04] MEDS: Sulfamethoxazole/Trimeth DS 1 EACH TABLET PO SCH ×2 (08:39→20:27)
[2018-01-04] MEDS: Furosemide 20 MG TABLET PO SCH ×2 (08:39→16:11)
[2018-01-04] MEDS: Aspirin 81 MG TAB.CHEW PO SCH (08:39)
[2018-01-04] MEDS: Ketoconazole 2% CRM 15 GM TUBE TP SCH (08:40)
[2018-01-04] MEDS: predniSONE 20 MG TABLET PO SCH (08:40)
[2018-01-04] MEDS: Nystatin SUSP 5 ML UD.LIQ PO SCH ×4 (08:41→20:27)
[2018-01-04] MEDS ORDERED: ZITHROMAX PO SCH (09:00)
[2018-01-04] MEDS ORDERED: *HR* Propofol 200 MG/20 ML VIAL IVP ONE ×2 (11:35→11:38)
--- NOTE | 2018-01-04 11:57 | Gastroenterology Consult Note ---
<CaliAdan reese Kelly - Last Filed: 01/04/18 11:55> Date of Encounter: 01/04/18 Time of Encounter: 10:50 - Assessment and plan (1) Dysphagia Current Visit: Yes Status: Acute Assessment and plan: Plan for EGD with possible dilation today. Keep NPO for now. Qualifiers: Dysphagia type: unspecified Qualified Code(s): R13.10 - Dysphagia, unspecified (2) HIV (human immunodeficiency virus infection) Current Visit: No Status: Chronic Assessment and plan: Following at [facility]. (3) Chronic hepatitis C Current Visit: Yes Status: Acute Assessment and plan: Receiving treatment at [facility] with Harvemelyn. Qualifiers: Hepatic coma status: without hepatic coma Qualified Code(s): B18.2 - Chronic viral hepatitis C - Time Spent With Patient Total time spent is greater than 50% in coordination of care (as documented) at patient's floor/unit and/or counseling patient: GI History of Present Illness - Data of Consult Patient: new to practice Consult date: 01/04/18 Requesting Physician: Deny Alonso DO - Consult Narrative Reason for consult: Candidal esophagitis History of present illness: Mr. Coats is a 57 year old male with PMHx of arthritis, CAD, hepatitis C, HIV, HLD, IV drug user, CT who presented to the ED with SOB in 2 weeks of wheezing productive cough. He saw his PCP one week ago and was diagnosed with bronchitis and given albuterol inhaler that did not improve symptoms. His last CD4 count at [facility] was 27 and is on prophylactic Bactrim and azithromycin. He is treated for his HIV and hepatitis C (Harvoni) at [facility]. He has an appointment for EGD tomorrow at [facility] to rule out candidal esophagitis. Patient requests to have procedure completed here at [facility]. He complains of having difficulty swallowing , feeling like food gets stuck in his throat. Procedures: None NSAIDs: ASA Anticoagulation: Plavix Past Med Surg Social Fam HX - Past Medical History Medical history: arthritis, coronary artery disease, hepatitis, hyperlipidemia, myocardial infarction, other Additional medical history: hx bells palsy Psychiatric history: no psych history - Past Surgical History Surgical History: angioplasty/stent, tonsilectomy, other Additional surgical history: facial surgery - Social History Smoking Status: Former smoker Smokeless Tobacco Status: No Alcohol use: none Drug use: none - Family History Mother Living Status: Still Living Hx Family Medical Disorders: (CKD) Father Living Status: Hx Family Cardiac Disorders: Yes - Gastrointestinal Gastrointestinal: Present: as per HPI - Constitutional Constitutional: as per HPI - EENT Eyes: as per HPI Ears: Present: as per HPI Nose, mouth and throat: Present: as per HPI - Cardiovascular Cardiovascular ROS: Present: as per HPI - Respiratory Respiratory IM: Present: as per HPI - Genitourinary Genitourinary: Absent: change in color, Urinary frequency - Neurological ROS Neurological GI: Present: as per HPI - Hematologic/Lymphatic Hematologic/Lymphatic pediatric: Present: as per HPI - Musculoskeletal Musculoskeletal ROS GI: Present: as per HPI - Integumentary Integumentary GI: Present: as per HPI - Psychiatric ROS Psychiatric GI: Present: as per HPI - Endocrine Endocrine IM: Present: as per HPI - Constitutional Vitals: Temp Pulse Resp BP Pulse Ox 98.3 F 85 18 109/71 95 01/04/18 11:41 01/04/18 11:41 01/04/18 11:41 01/04/18 11:41 01/04/18 11:41 General appearance: Present: cooperative, A&O X 3, no acute distress, answers questions appropriately - Head Head exam: Present: atraumatic, normocephalic - Eye Eye exam: Present: normal appearance, sclera anicteric - ENT ENT exam: Present: mucous membranes dry - Neck Neck exam general surgery: Present: normal inspection, trachea midline - Respiratory Respiratory exam: Present: decreased breath sounds, CTAB. Absent: rales, rhonchi - Cardiovascular Cardiovascular exam: Present: RRR, +S1, +S2 - GI/Abdominal GI/Abdominal exam: Present: soft, no peritoneal signs. Absent: distended, firm , guarding, tenderness - Rectal Rectal exam: Present: deferred - Extremities Exam Extremities exam: Present: warm - Neurological Exam Neurological exam: Present: no focal deficits - Psychiatric Psychiatric exam: Present: normal affect, normal mood - Skin Skin exam: Present: dry, intact, normal color, warm Results - Labs CBC & Chem 7: 01/03/18 06:37 01/03/18 06:37 Labs: Last Result Calcium 8.7 mg/dL (8.6-10.3) 01/03/18 06:37 Troponin I < 0.03 ng/mL (< 0.04) 12/31/17 22:29 Entire Visit Hgb 12.2 g/dL (12.9-16.9) L 01/03/18 06:37 Hct 36.9 % (37.5-50.1) L 01/03/18 06:37 Total Bilirubin 0.3 mg/dL (0.3-1.0) 01/02/18 07:01 AST 15 Units/L (13-39) 01/02/18 07:01 ALT 12 Units/L (7-52) 01/02/18 07:01 - Impressions Impressions Chest X-Ray 01/03/18 14:40 IMPRESSION: Question of COPD. No acute cardiopulmonary disease. D/ / Jairo Simpson MD / Jairo Simpson MD Interpreting Provider: Jairo Simpson MD Consult Discharge Plan - Plan Instructions: Lansoprazole (By mouth), Tiotropium (By breathing), Chronic Obstructive Pulmonary Disease (DC) Referrals: Lilliana Baez UTILIZATION MANAGER [Advanced Practice Nurse] - 01/12/18 9:00 am Prescriptions: Lansoprazole [Prevacid] 30 mg PO BID 30 Days #60 capsule. Tiotropium [Spiriva] 18 mcg IH DAILY #30 capsule <Sal Vaughn - Last Filed: 01/05/18 12:30> Date of Encounter: 01/04/18 - Time Spent With Patient Total time spent is greater than 50% in coordination of care (as documented) at patient's floor/unit and/or counseling patient: GI History of Present Illness - Data of Consult Requesting Physician: Deny Alonso DO - Consult Narrative History of present illness: Mr. Coats is a 57 year old male - Constitutional Vitals: Temp Pulse Resp BP Pulse Ox 97.9 F 104 16 114/72 95 01/05/18 08:01 01/05/18 08:01 01/05/18 11:14 01/05/18 08:01 01/05/18 11:14 Results - Labs CBC & Chem 7: 01/03/18 06:37 09/24/18 06:37 Labs: Last Result Calcium 8.7 mg/dL (8.6-10.3) 01/03/18 06:37 Troponin I < 0.03 ng/mL (< 0.04) 12/31/17 22:29 Entire Visit Hgb 12.2 g/dL (12.9-16.9) L 01/03/18 06:37 Hct 36.9 % (37.5-50.1) L 01/03/18 06:37 Total Bilirubin 0.3 mg/dL (0.3-1.0) 01/02/18 07:01 AST 15 Units/L (13-39) 01/02/18 07:01 ALT 12 Units/L (7-52) 01/02/18 07:01 - Impressions Impressions Echocardiogram 01/04/18 11:00 Impressions: LVEF 40-45%. Mild global left ventricular systolic dysfunction. Normal right ventricular structure and function. No significant valvular dysfunction. Unable to estimate pulmonary artery pressure due to lack of TR jet. Left Ventricular Wall Motion: Rest Echo Findings The apex, apical inferior, mid inferior, basal inferior, apical anterior, mid anterior, basal anterior, apical septal, mid inferior septal, basal inferior septal, apical lateral, mid anterior lateral, basal anterior lateral, mid anterior septal, mid inferior lateral, basal anterior septal and basal inferior lateral polanco were hypokinetic. Findings: Study Quality * Technically adequate exam. ECG Findings * Normal sinus rhythm. Left Ventricle * LVEF 40-45%. * Normal LV chamber size, wall thickness and function. * Mild left ventricular diastolic dysfunction. * Mild global left ventricular systolic dysfunction. Right Ventricle * Normal right ventricular structure and function. Left Atrium * Normal left atrial size. Right Atrium * Normal right atrial size. Interatrial Septum * Interatrial septum not well evaluated. Aortic Valve * No aortic regurgitation. * No aortic stenosis. * Mildly calcified aortic valve leaflets. Mitral Valve * Normal mitral valve structure. * Trace mitral regurgitation. Tricuspid Valve * Unable to estimate RVSP due to lack of TR jet. * No tricuspid regurgitation. * Estimated RA pressure is 10 mmHg. * Normal tricuspid valve structure and function. Pulmonic Valve * No pulmonic regurgitation. * Pulmonic valve not well visualized. Aorta * Normally sized aortic root. Pericardium * The pericardium appears normal. IVC * Normal IVC dimensions and inspiratory collapse. - Attending Attestation Patient with HIV has been receiving all his care at [facility]. He is scheduled for EGD tomorrow there. Recommend him going back there for EGD and continuation of care. I have personally performed a face to face evaluation on this patient. I have reviewed and agree with the care plan. History and Exam by me shows:
--- NOTE | 2018-01-04 12:26 | Anesthesia Evaluation PreOp ---
Date of Encounter: 01/04/18 Time of Encounter: 12:24 - Past History Planned Operation: EGD Cardiac History: HTN, Hyperlipidemia, Cardiac Stent (staged 2 stents -09/2017 RCA and Cx) Pulmonary History: Former smoker (quit 1 month), COPD BINDERY HELPER History: Other (bells palsy Left side) Other Medical History: Hepatic (Hep C), Other (dysphagia, hx IV drug use, HIV) Anesthesia History: No Prior Anesthetic Complications, Past Anesthesia Alcohol Use: none Drug use: none Medications and Allergies Aspirin 81 mg PO DAILY #30 tab.chew 08/28/17 [Rx] Clopidogrel [Plavix] 75 mg PO DAILY #30 tablet 08/28/17 [Rx] Nitroglycerin 0.4 mg SL Q5MIN PRN #30 tab.subl 08/28/17 [Rx] Albuterol Sulfate [Albuterol Inhaler] 2 puff IH Q4HR #1 hfa.aer.ad 12/16/17 [Rx] Atorvastatin [Lipitor] 20 mg PO HS 12/31/17 [History] Azithromycin [Zithromax] 1,200 mg PO QWEEK 12/31/17 [History] Furosemide [Lasix] 20 mg PO BID 12/31/17 [History] Sulfamethoxazole/Trimeth DS [Bactrim DS] 1 tab PO BID 12/31/17 [History] Elviteg/Cob/Emtri/Tenof Alafen [Genvoya Tablet] 1 tab PO DAILY 01/01/18 [History ] Ledipasvir/Sofosbuvir [Harvoni 90-400 mg Tablet] 1 tab PO DAILY 01/01/18 [ History] Tiotropium [Spiriva] 18 mcg IH DAILY #30 capsule 01/02/18 [Rx] 3 Allergy/AdvReac Type Severity Reaction Status Date / Time sulfamethoxazole AdvReac Gastrointestinal Verified 12/31/17 23:52 [From Bactrim] Upset trimethoprim [From Bactrim] AdvReac Gastrointestinal Verified 12/31/17 23:52 Upset - Meds/Allergy Pre-op Review Medications Reviewed: Yes Allergies Reviewed: Yes Beta Blockers on Current Med List: No Anesthesia Results - Labs 01/03/18 06:37 01/03/18 06:37 - Imaging EKG: report reviewed (SINUS RHYTHM INCOMPLETE RIGHT BUNDLE BRANCH BLOCK POSSIBLE LEFT VENTRICULAR HYPERTROPHY) Additional studies: [facility] 09/2017 Procedures Performed: Stent w/ PTCA Single Major Vessel (mid LCx CASSY) Right iliofemoral angiography Indications: Coronary Artery Disease, Staged PCI after STEMI Impressions: Patient had successful Drug-Eluting Stent placement in the mid Circ. Recommendations: Optimal medical therapy of patient's disease. Aggressive risk factor modification. History/Risk Factors: HIV Current/Recent Smoker Prior [place] Procedure Patient had successful Drug-Eluting Stent placement in the mid Circ. No complications. Access obtained in the right Femoral artery by percutaneous puncture, unable to wire the radial after access of artery. Hemodynamics: Coronary Dominance: Lesion Findings/Interventions * Circumflex There is a 12 mm long, 80% stenosis in the Mid Circumflex. The lesion has no thrombus present. An intervention was performed on the Mid Circumflex with a final stenosis of 0%. There were no lesion complications. The final SUKI flow was 3. Echo 08/2017 Impressions: LVEF 45-50%. Mild segmental LV systolic dysfunction. Mild left ventricular diastolic dysfunction. Normal right ventricular structure and function. Mild mitral regurgitation. No pulmonary hypertension. Anesthesia Exam Vital Signs/O2 Sat/Glucose, Most Recent Temp Pulse Resp BP Pulse Ox 98 F 78 18 124/80 93 01/04/18 12:16 01/04/18 12:16 01/04/18 12:16 01/04/18 12:16 01/04/18 12:16 - HEENT Pupil (Motor): Other (eye patch left eye) Mallampati: II Teeth: Poor dentition Oral Opening: Greater than 3 - BINDERY HELPER LOC: Oriented BINDERY HELPER Motor: Normal RUE, Normal LUE, Normal RLE, Normal LLE, Normal Face BINDERY HELPER Sensory: Normal: RUE, LUE, RLE, LLE, Face - Cardiac Rhythm: Regular Murmur: None - Pulmonary Breath Sounds: bilateral Clear Respiratory Effort: Symmetrical Anesthesia Assess/Plan ASA Score: 3 Modified [place] Scale for Level of Consciousness: Cooperative, oriented, and tranquil Anesthetic Plan: MAC Monitoring Plan: Standard Monitors Recovery Plan: PACU
[2018-01-04] MEDS ORDERED: 0.9 % Sodium Chloride 1,000 ML IVC SCH (12:30)
--- NOTE | 2018-01-04 13:14 | Anesthesia Evaluation Post Op ---
Date of Encounter: 01/04/18 Time of Encounter: 13:13 - Vital Signs Vital Signs: Vital Signs/O2 Sat/Glucose, Most Recent Temp Pulse Resp BP Pulse Ox 98 F 78 18 124/80 93 01/04/18 12:16 01/04/18 12:16 01/04/18 12:16 01/04/18 12:16 01/04/18 12:16 - Lungs Lungs: Clear Ascult./Percussion - Airway Airway: Non-obstructed - Cardiovascular Regular Rate - Mental Status Mental Status: Alert & Oriented, Answers Appropriately - Pain Pain Scale: 0 - Nausea Vomiting Nausea Vomiting: Not Present - Hydration Hydration: NPO - Discharge PostOp Status: Transfer Patient to floor
[2018-01-05] MEDS: Ipratropium/Albuterol Neb 3 ML IH SCH ×2 (04:45→11:16)
[2018-01-05 08:05] VITALS: BP 114/72
--- NOTE | 2018-01-05 09:44 | Discharge Summary ---
Orders not resulted at time of discharge: Pending orders 01/04/18 12:45 Surgical Pathology [PTH] Routine Date of Encounter: 01/05/18 Time of Encounter: 09:00 - Discharge Diagnosis (1) HIV (human immunodeficiency virus infection) Priority: Secondary Status: Chronic (2) CAD (coronary artery disease) Priority: Secondary Status: Chronic Qualifiers: Coronary Disease-Associated Artery/Lesion type: [place] artery [place] vs. transplanted heart: [place] heart Associated angina: without angina Qualified Code(s): I25.10 - Atherosclerotic heart disease of [place] coronary artery without angina pectoris (3) Acute exacerbation of chronic obstructive airways disease Priority: Primary Status: Acute (4) Acute respiratory failure with hypoxia Priority: Primary Status: Ruled-out (5) Severe protein-calorie malnutrition Priority: Secondary Status: Suspected (6) Hepatitis C Priority: Secondary Status: Chronic Qualifiers: Viral hepatitis chronicity: chronic Hepatic coma status: without hepatic coma Qualified Code(s): B18.2 - Chronic viral hepatitis C (7) Gastritis Priority: Primary Status: Acute Qualifiers: Gastritis type: unspecified gastritis Chronicity: unspecified Gastritis bleeding: without bleeding Qualified Code(s): K29.70 - Gastritis, unspecified , without bleeding Hospital course: Mr. Coats is a 57 year old male hx HIV and hep C presents with SOB and two weeks of wheezing and productive cough. He denies fever and chills - his fatigue is at baseline. His chest feels tight but no sharp pain. He came in today because of left arm and leg tingling that has resolved. He saw PCP one week ago and was diagnosed with bronchitis and give albuterol inhaler that did not help. He reports increasing pedal edema in last few days. In ED vitals, T 97.5 HR 98 Bp 151/80 RR22 and 97% on 2L. WBC 5, Na 132. Troponin and BNP normal. He remained on oxygen NC and given prednisone 60 mg and duoneb treatment. His last CD4 count at [facility] was 27 and he is on prophylactic Bactrim and azithromycin. He sees Dr Jose Antonio Peraza for treatment of HIV with Jammie and DR Marvin Burden at [facility] for Hep C with ciro. He has history of IV drug abuse and incarceration but has been clean since 206. He as diagnosed with both 4 months ago after screening. Quit smoking three weeks ago but has 40pkyr . Denies current EtOH use. He doesn' t know if he has never been diagnosed with COPD or CHF but last echo EF45-50. He had IN on 08-25 followed by [facility] and staged stenting completed on 09-23. 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 Family history of father with IN at 53. He admits to constipation with last BM a few days ago without pain. Admits to increased urination since started lasix. 01/05/2018: Patient was treated for suspected COPD exacerbation. He was on a brief course of prednisone. His chest x-ray showed no acute disease. Not felt PCP pneumonia and he continued with his Bactrim for PCP prophylaxis. Patient also had an EGD during this admission which showed gastritis as well as a Schatzki's ring. Patient is on aspirin and Plavix and therefore a biopsy was not performed at this time. Given his recent cardiac stenting 3 months ago he remained on aspirin and Plavix. She was doing well 1 day of discharge and deemed stable for discharge. He was placed on Protonix 40 mg by mouth twice a day. He will follow-up with gastroenterology for repeat upper endoscopy once he is off aspirin and Plavix. He will need follow-up with cardiology with regard to this. On day of discharge patient was well. Pain was back to normal but he did still have a mild nonproductive cough. He had no abdominal pain and was eating well. Patient was counseled on smoking cessation. Discharge discussed with: patient Time spent discussing smoking cessation with patient: 3 to 10 minutes - Time Spent with Patient Total time spent providing and/or coordinating discharge services: Greater than 30 minutes (37 min) - Discharge Medications Prescriptions: Tiotropium [Spiriva] 18 mcg IH DAILY #30 capsule Home Medications: Aspirin 81 mg PO DAILY #30 tab.chew 08/28/17 [Rx] Clopidogrel [Plavix] 75 mg PO DAILY #30 tablet 08/28/17 [Rx] Nitroglycerin 0.4 mg SL Q5MIN PRN #30 tab.subl 08/28/17 [Rx] Albuterol Sulfate [Albuterol Inhaler] 2 puff IH Q4HR #1 hfa.aer.ad 12/16/17 [Rx] Atorvastatin [Lipitor] 20 mg PO HS 12/31/17 [History] Azithromycin [Zithromax] 1,200 mg PO QWEEK 12/31/17 [History] Furosemide [Lasix] 20 mg PO BID 12/31/17 [History] Sulfamethoxazole/Trimeth DS [Bactrim DS] 1 tab PO BID 12/31/17 [History] Elviteg/Cob/Emtri/Tenof Alafen [Genvoya Tablet] 1 tab PO DAILY 01/01/18 [History ] Ledipasvir/Sofosbuvir [Harvoni 90-400 mg Tablet] 1 tab PO DAILY 01/01/18 [ History] Tiotropium [Spiriva] 18 mcg IH DAILY #30 capsule 01/02/18 [Rx] Allergies/Adverse Reactions: 3 Allergy/AdvReac Type Severity Reaction Status Date / Time sulfamethoxazole AdvReac Gastrointestinal Verified 12/31/17 23:52 [From Bactrim] Upset trimethoprim [From Bactrim] AdvReac Gastrointestinal Verified 12/31/17 23:52 Upset Date of admission: 01/01/18 17:37 Primary care physician: Jose Antonio Morgan MD Consults: 01/04/18 08:06 Consult to Gastroenterology [CONS] Routine Consulting Provider: Gastroenterology [facility] Reason for Consult: PMHx of HIV with low CD4 count. EGD to rule out debbie esophagitis Call Completed: Yes - Constitutional Vitals: Temp Pulse Resp BP Pulse Ox 97.9 F 104 16 114/72 96 01/05/18 08:01 01/05/18 08:01 01/05/18 08:01 01/05/18 08:01 01/05/18 08:01 General appearance: Present: cachectic, A&O X 3, no acute distress, answers questions appropriately Exam: General appearance: Present: A&O X 3, no acute distress, answers questions appropriately - Head Head exam: Present: atraumatic - Respiratory Respiratory exam: Present: wheezes (wheezing bilaterally ). Absent: accessory muscle use, rales - Cardiovascular Cardiovascular exam: Present: RRR, +S1, +S2. Absent: systolic murmur - GI/Abdominal GI/Abdominal exam: Present: normal bowel sounds, soft. Absent: guarding - Extremities Exam Extremities exam: Present: warm, radial pulses palpable and symmetrical - Neurological Exam Neurological exam: Present: alert, CN II-XII intact, oriented X3, no focal deficits. Absent: motor sensory deficit, pronater drift - Psychiatric Psychiatric exam: Present: normal affect, normal mood - Skin Skin exam: Present: dry, intact, normal color - Head Head exam: Present: atraumatic, normocephalic - Patient Status Disposition: Home, Self-Care Condition: Fair Overall status at discharge: patient is back to baseline - Discharge Instructions Instructions: Tiotropium (By breathing) Follow Up With: Jose Antonio Morgan MD [Primary Care Provider] - 01/05/18 1:20 pm (Requested a follow up appointment in 7-10 days. )
[2018-01-05] MEDS: Sulfamethoxazole/Trimeth DS 1 EACH TABLET PO SCH (09:49)
[2018-01-05] MEDS: Furosemide 20 MG TABLET PO SCH (09:49)
[2018-01-05] MEDS: predniSONE 20 MG TABLET PO SCH (09:49)
[2018-01-05] MEDS: Aspirin 81 MG TAB.CHEW PO SCH (09:49)
[2018-01-05] MEDS: Ketoconazole 2% CRM 15 GM TUBE TP SCH (09:51)
[2018-01-05] MEDS: Nystatin SUSP 5 ML UD.LIQ PO SCH (09:51)
== END 2018-01-05 13:49 | disposition home or self-care (01) | DRG 190 ==
LOC: EMEROOARM 21:41 → 3BNU 21:41 → SUATTDRO 23:33 → 3BNU 01-01 00:06
PROVIDERS: ADMIT Family Medicine; ATTEND Internal Medicine
PROC: ENDOEBX (2018-01-04 14:30)

== ENCOUNTER 2019-05-22 10:18 | Observation (INO) ==
[2019-05-22] MEDS ORDERED: Aspirin 325 MG TABLET PO ONE (10:29)
[2019-05-22 10:38] LABS: Eosinophils # 0.3 K/mcL (0.0-0.6); Eosinophils % 7.5 %; Hematocrit 47.9 % (37.5-50.1); Hemoglobin 16.2 g/dL (12.9-16.9); Immature Granulocytes % 0.3 % (0-4); Lymphocytes # 0.7 K/mcL (0.6-4.6); Lymphocytes % 18.3 %; Mean Corpuscular HGB Conc 33.8 g/dL (31.6-35.5); Mean Corpuscular Hemoglobin 31.8 pg (28.0-33.3); Mean Corpuscular Volume 93.9 fL (83.0-100.0); Mean Platelet Volume 10.7 fL (9.4-12.4); Monocytes # 0.5 K/mcL (0.0-1.3); Monocytes % 12.1 %; Neutrophils # 2.4 K/mcL (1.6-8.9); Platelet Count 163 K/mcL (140-400); Red Cell Distribution Width 14.3 % (11.5-14.5); Segmented Neutrophils % 60.8 %; White Blood Count 3.9 K/mcL (4.3-11.1)
[2019-05-22] MEDS ORDERED: *HR* Heparin 5,000 UNIT/ML VIAL IVP ONE (10:50)
[2019-05-22] MEDS ORDERED: *HR* Heparin 5,000 UNIT/ML VIAL IVP PRN (10:50)
[2019-05-22 11:03] LABS: BUN/Creatinine Ratio 14 (6-26); Blood Urea Nitrogen 14 mg/dL (6-20); Carbon Dioxide 26 mEq/L (23-29); Chloride 103 mEq/L (98-107); Glucose 95 mg/dL (70-105); Osmolality,Calculated 286 (280-300); Potassium 4.1 mEq/L (3.5-5.1); Sodium 138 mEq/L (136-145); Troponin I < 0.03 ng/mL (< 0.04); eGFR For African Americans > 60 (> 60); eGFR For Non-African Americans > 60 (> 60)
[2019-05-22] MEDS: Heparin 25,000 UNIT/250 ML D5W 25,000 UNIT/250 ML IV.SOLN IVC SCH (11:16)
[2019-05-22 11:25] LABS: Prothrombin Time 10.8 Seconds (9.4-12.1)
[2019-05-22 11:27] LABS: Activated Partial Thrombo Time 31.2 Seconds (26.0-36.0)
[2019-05-22] MEDS ORDERED: Acetaminophen 325 MG TABLET PO PRN (13:06)
[2019-05-22] MEDS ORDERED: Naloxone 0.4 MG/ML INJ IVP PRN (13:06)
[2019-05-22] MEDS ORDERED: Ondansetron 4 MG/2 ML VIAL IVP PRN (13:06)
[2019-05-22] MEDS ORDERED: Nitroglycerin 0.4 MG TAB.SUBL SL PRN (13:38)
[2019-05-22] MEDS ORDERED: Elviteg/Cob/Emtri/Tenof Alafen [Genvoya Tablet] PO SCH (13:45)
[2019-05-22] MEDS: Sulfamethoxazole/Trimeth SS 1 TAB PO SCH (15:19)
[2019-05-22] MEDS: *HR* Heparin 5,000 UNIT/ML VIAL IVP PRN (20:12)
[2019-05-23 02:54] LABS: Eosinophils # 0.2 K/mcL (0.0-0.6); Eosinophils % 8.3 %; Hematocrit 41.3 % (37.5-50.1); Immature Granulocytes % 0.3 % (0-4); Lymphocytes # 0.5 K/mcL (0.6-4.6); Lymphocytes % 17.9 %; Mean Corpuscular HGB Conc 33.7 g/dL (31.6-35.5); Mean Corpuscular Hemoglobin 32.2 pg (28.0-33.3); Mean Corpuscular Volume 95.6 fL (83.0-100.0); Mean Platelet Volume 10.7 fL (9.4-12.4); Monocytes # 0.4 K/mcL (0.0-1.3); Monocytes % 13.8 %; Neutrophils # 1.7 K/mcL (1.6-8.9); Platelet Count 128 K/mcL (140-400); Red Blood Count 4.32 M/mcL (4.19-5.50); Red Cell Distribution Width 14.1 % (11.5-14.5); Segmented Neutrophils % 58.7 %; White Blood Count 2.9 K/mcL (4.3-11.1)
[2019-05-23 02:58] LABS: Hemoglobin 13.9 g/dL (12.9-16.9)
[2019-05-23 03:12] LABS: BUN/Creatinine Ratio 18 (6-26); Blood Urea Nitrogen 15 mg/dL (6-20); Calcium 8.5 mg/dL (8.6-10.3); Carbon Dioxide 22 mEq/L (23-29); Chloride 107 mEq/L (98-107); Chol/HDL Ratio 3.8 (0-4.9); Cholesterol 128 mg/dL (< 200); Glucose 92 mg/dL (70-105); HDL Cholesterol 34 mg/dL (40-59); LDL Cholesterol,Calculated 76 mg/dL (0-99); Magnesium 1.7 mg/dL (1.6-2.6); Osmolality,Calculated 280 (280-300); Potassium 3.9 mEq/L (3.5-5.1); Sodium 135 mEq/L (136-145); Triglycerides 89 mg/dL (< 150); eGFR For African Americans > 60 (> 60); eGFR For Non-African Americans > 60 (> 60)
[2019-05-23 03:28] LABS: Thyroid Stimulating Hormone 6.325 mcIU/mL (0.340-5.600)
[2019-05-23 08:41] LABS: Estimated Average Glucose 114 mg/dl
[2019-05-23] MEDS: Sulfamethoxazole/Trimeth SS 1 TAB PO SCH (09:06)
[2019-05-23] MEDS: Aspirin Enteric Coated 81 MG Tablet PO SCH (09:06)
[2019-05-23] MEDS: Heparin 25,000 UNIT/250 ML D5W 25,000 UNIT/250 ML IV.SOLN IVC SCH (11:32)
[2019-05-23] MEDS: *HR* Heparin 5,000 UNIT/ML VIAL IVP PRN (11:33)
[2019-05-23 12:43] LABS: Triiodothyronine (T3) Free 2.4 pg/mL (2.50-3.90)
[2019-05-24 01:37] LABS: Basophils % 1.1 %; Eosinophils # 0.2 K/mcL (0.0-0.6); Eosinophils % 8.4 %; Hematocrit 41.9 % (37.5-50.1); Immature Granulocytes % 0.4 % (0-4); Lymphocytes # 0.6 K/mcL (0.6-4.6); Mean Corpuscular HGB Conc 33.4 g/dL (31.6-35.5); Mean Corpuscular Hemoglobin 31.7 pg (28.0-33.3); Mean Platelet Volume 11.3 fL (9.4-12.4); Monocytes # 0.3 K/mcL (0.0-1.3); Monocytes % 11.9 %; Neutrophils # 1.7 K/mcL (1.6-8.9); Platelet Count 147 K/mcL (140-400); Red Blood Count 4.41 M/mcL (4.19-5.50); Red Cell Distribution Width 13.9 % (11.5-14.5); Segmented Neutrophils % 58.2 %; White Blood Count 2.9 K/mcL (4.3-11.1)
[2019-05-24 01:59] LABS: BUN/Creatinine Ratio 15 (6-26); Blood Urea Nitrogen 16 mg/dL (6-20); Calcium 8.6 mg/dL (8.6-10.3); Carbon Dioxide 22 mEq/L (23-29); Chloride 105 mEq/L (98-107); Glucose 91 mg/dL (70-105); Osmolality,Calculated 281 (280-300); Potassium 3.7 mEq/L (3.5-5.1); Sodium 135 mEq/L (136-145); eGFR For African Americans > 60 (> 60); eGFR For Non-African Americans > 60 (> 60)
[2019-05-24] MEDS ORDERED: Regadenoson 0.4 MG/5 ML SYRINGE IVP ONE (06:24)
[2019-05-24] MEDS: Sulfamethoxazole/Trimeth SS 1 TAB PO SCH (10:24)
[2019-05-24] MEDS: Aspirin Enteric Coated 81 MG Tablet PO SCH (10:24)
[2019-05-24 11:49] VITALS: BP 103/58
[2019-05-24] MEDS: Heparin 25,000 UNIT/250 ML D5W 25,000 UNIT/250 ML IV.SOLN IVC SCH (15:15)
== END 2019-05-24 15:30 | disposition home or self-care (01) ==
LOC: EMEROOARM 10:18 → CDU 10:18 → SUATTDRO 12:24 → CDU 13:01 → 3BNU 05-23 13:35
PROVIDERS: ADMIT Internal Medicine; ATTEND Student in an Organized Health Care Education/Training Program

== ENCOUNTER 2019-06-16 20:05 | Inpatient (IN) ==
[2019-06-16] MEDS ORDERED: Naloxone 0.4 MG/ML INJ IVP PRN (22:57)
[2019-06-16] MEDS ORDERED: Acetaminophen 325 MG TABLET PO PRN (22:57)
[2019-06-16] MEDS ORDERED: 0.9 % Sodium Chloride 1,000 ML IV ONE (23:32)
[2019-06-16] MEDS: 0.9 % Sodium Chloride 1,000 ML IVC SCH (23:35)
[2019-06-17 00:24] LABS: INR 1.4; Prothrombin Time 15.6 Seconds (9.4-12.1)
[2019-06-17 00:34] LABS: Magnesium 1.2 mg/dL (1.6-2.6)
[2019-06-17 00:38] LABS: Troponin I 0.05 ng/mL (< 0.04)
[2019-06-17 00:40] LABS: Mean Corpuscular Volume 96.4 fL (83.0-100.0); Mean Platelet Volume 11.2 fL (9.4-12.4)
[2019-06-17] MEDS ORDERED: Ipratropium/Albuterol Neb 3 ML IH PRN ×2 (00:40→16:52)
[2019-06-17 00:42] LABS: Hemoglobin 11.7 g/dL (12.9-16.9); Immature Platelets 4.8 % (1.1-6.1); Mean Corpuscular HGB Conc 33.4 g/dL (31.6-35.5); Mean Corpuscular Hemoglobin 32.2 pg (28.0-33.3); Red Blood Count 3.63 M/mcL (4.19-5.50); Red Cell Distribution Width 14.5 % (11.5-14.5); White Blood Count 8.8 K/mcL (4.3-11.1)
[2019-06-17 01:44] LABS: Adenovirus Not Detected (Not Detect); Bordetella Pertussis Not Detected (Not Detect); Chlamydophila pneumoniae Not Detected (Not Detect); Coronavirus 229E Not Detected (Not Detect); Coronavirus HKU1 Not Detected (Not Detect); Coronavirus NL63 Not Detected (Not Detect); Coronavirus OC43 Not Detected (Not Detect); Human Metapneumovirus Not Detected (Not Detect); Human Rhinovirus/Enterovirus Not Detected (Not Detect); Influenza A Subtype 2009 H1 Not Detected (Not Detect); Influenza B Not Detected (Not Detect); Mycoplasma pneumoniae Not Detected (Not Detect); Parainfluenza Virus 1 Not Detected (Not Detect); Parainfluenza Virus 2 Not Detected (Not Detect); Parainfluenza Virus 3 Not Detected (Not Detect); Parainfluenza Virus 4 Not Detected (Not Detect); Respiratory Syncytial Virus Not Detected (Not Detect)
[2019-06-17 01:45] LABS: Bilirubin,Urine Negative (Negative); Blood,Urine Large (Negative); Clarity,Urine Cloudy (Clear); Color,Urine Dark Yellow (Yellow); Glucose,Urine (UA) Normal (Normal); Ketones,Urine Negative (Negative); Leukocyte Esterase,Urine Moderate (Negative); Nitrite,Urine Negative (Negative); PH,Urine 5.5 pH Units (5.0-8.0); Protein,Urine 30 mg/dL (Neg-Trace); Specific Gravity,Urine 1.018 (1.010-1.025); Urobilinogen,Urine Normal (Normal)
[2019-06-17 01:52] LABS: Bacteria,Urine None Seen per hpf (None-Few); Hyaline Casts,Urine None Seen per lpf (None-Few); RBC,Urine TNTC per hpf (0-3); Squamous Epithelial Cell,Urine Many per lpf (None-Few); WBC,Urine 30-50 per hpf (0-3)
[2019-06-17 02:12] LABS: Protein/Creatinine Ratio,Urine 0.93 mg/mg (0.00-0.20)
[2019-06-17] MEDS: Cefepime HCl 2,000 MG in Water for inj. (sterile) 20 ML IVP SCH ×2 (05:23→13:52)
[2019-06-17 06:00] LABS: Basophils % 0.3 %; Eosinophils % 0.3 %; Hematocrit 33.9 % (37.5-50.1); Hemoglobin 11.5 g/dL (12.9-16.9); Immature Granulocytes % 0.9 % (0-4); Immature Platelets 4.5 % (1.1-6.1); Immature Reticulocyte % 10.9 % (11.0-38.0); Lymphocytes # 0.3 K/mcL (0.6-4.6); Lymphocytes % 2.8 %; Mean Corpuscular HGB Conc 33.9 g/dL (31.6-35.5); Mean Corpuscular Hemoglobin 32.5 pg (28.0-33.3); Mean Corpuscular Volume 95.8 fL (83.0-100.0); Mean Platelet Volume 11.2 fL (9.4-12.4); Monocytes # 0.4 K/mcL (0.0-1.3); Monocytes % 4.1 %; Neutrophils # 8.7 K/mcL (1.6-8.9); Platelet Count 99 K/mcL (140-400); Red Blood Count 3.54 M/mcL (4.19-5.50); Red Cell Distribution Width 14.4 % (11.5-14.5); Retculocyte # 0.04 M/mcL (0.05-0.10); Reticulocyte % 1.1 % (1.6-2.8); Segmented Neutrophils % 91.6 %; White Blood Count 9.5 K/mcL (4.3-11.1)
[2019-06-17 06:04] LABS: Iron < 10 mcg/dL (65-175); Total Protein 5.1 g/dL (6.4-8.9); Transferrin 118 mg/dL (203-362)
[2019-06-17 06:11] LABS: Troponin I 0.04 ng/mL (< 0.04)
[2019-06-17 06:29] LABS: Platelet Estimate Decreased (Normal)
[2019-06-17 06:53] LABS: Alanine Aminotransferase 9 Units/L (7-52); Albumin 2.7 g/dL (3.5-5.7); Albumin/Globulin Ratio 1.1 (1.1-2.2); Alkaline Phosphatase 51 Units/L (34-104); Aspartate Amino Transferase 14 Units/L (13-39); BUN/Creatinine Ratio 19 (6-26); Bilirubin,Total 0.4 mg/dL (0.3-1.0); Blood Urea Nitrogen 16 mg/dL (6-20); Calcium 7.2 mg/dL (8.6-10.3); Carbon Dioxide 21 mEq/L (23-29); Chloride 111 mEq/L (98-107); Globulin 2.4 g/dL (2.4-3.5); Glucose 79 mg/dL (70-105); Magnesium 1.3 mg/dL (1.6-2.6); Osmolality,Calculated 282 (280-300); Potassium 3.3 mEq/L (3.5-5.1); Sodium 136 mEq/L (136-145); eGFR For African Americans > 60 (> 60); eGFR For Non-African Americans > 60 (> 60)
[2019-06-17] MEDS: 0.9 % Sodium Chloride 1,000 ML IVC SCH ×2 (08:12→11:09)
[2019-06-17] MEDS ORDERED: Nicotine 14 MG PATCH.TD24 TD SCH (09:00)
[2019-06-17] MEDS ORDERED: 0.9 % Sodium Chloride 500 ML IVC ONE (11:16)
[2019-06-17] MEDS ORDERED: Ringers Solution, Lactated 1,000 ML IVC SCH (13:15)
[2019-06-17] MEDS ORDERED: MethylPREDNISolone 40 MG/ML VIAL IVP SCH (16:00)
[2019-06-17] MEDS: Calcium Gluconate 1gm/50mL 1 GM/50 ML BAG IVPB SCH ×2 (16:09→17:20)
[2019-06-17] MEDS ORDERED: Naloxone 0.4 MG/ML INJ IVP PRN (16:52)
[2019-06-17] MEDS ORDERED: Ipratropium/Albuterol Neb 3 ML IH SCH (17:00)
[2019-06-17] MEDS: Ipratropium/Albuterol Neb 3 ML IH SCH ×2 (17:06→22:01)
[2019-06-17] MEDS: Sulfamethoxazole/Trimeth SS 1 TAB PO SCH (17:20)
[2019-06-17] MEDS: *HR* Heparin 5,000 UNIT/ML VIAL SQ SCH ×2 (18:23→22:33)
[2019-06-17] MEDS: Acetaminophen 325 MG TABLET PO PRN (19:42)
[2019-06-18] MEDS: Ipratropium/Albuterol Neb 3 ML IH SCH ×4 (03:34→22:03)
[2019-06-18] MEDS: *HR* Heparin 5,000 UNIT/ML VIAL SQ SCH ×2 (05:30→13:40)
[2019-06-18] MEDS ORDERED: Perflutren Lipid Microsphere 1.3 ML in 0.9 % Sodium Chloride 8.7 ML IVP ONE (07:01)
[2019-06-18] MEDS ORDERED: Aminoglycoside Consult 1 EACH MC ONE (08:16)
[2019-06-18 08:55] LABS: Hemoglobin 12.5 g/dL (12.9-16.9); Segmented Neutrophils % 93.3 %
[2019-06-18 08:57] LABS: Hematocrit 37.3 % (37.5-50.1); Immature Granulocytes % 0.9 % (0-4); Immature Platelets 6.3 % (1.1-6.1); Lymphocytes # 0.3 K/mcL (0.6-4.6); Lymphocytes % 3.2 %; Mean Corpuscular HGB Conc 33.5 g/dL (31.6-35.5); Mean Corpuscular Hemoglobin 31.7 pg (28.0-33.3); Mean Corpuscular Volume 94.7 fL (83.0-100.0); Mean Platelet Volume 11.9 fL (9.4-12.4); Monocytes # 0.2 K/mcL (0.0-1.3); Monocytes % 2.6 %; Neutrophils # 7.6 K/mcL (1.6-8.9); Red Blood Count 3.94 M/mcL (4.19-5.50); Red Cell Distribution Width 14.3 % (11.5-14.5); White Blood Count 8.1 K/mcL (4.3-11.1)
[2019-06-18] MEDS: Patient Taking Own Medication 1 EACH PO SCH (08:59)
[2019-06-18] MEDS: Sulfamethoxazole/Trimeth SS 1 TAB PO SCH (08:59)
[2019-06-18] MEDS: Nicotine 14 MG PATCH.TD24 TD SCH (08:59)
[2019-06-18] MEDS ORDERED: cefTRIAXone 1,000 MG in Water for inj. (sterile) 10 ML IVP SCH (09:00)
[2019-06-18] MEDS ORDERED: cefTRIAXone 2,000 MG in Water for inj. (sterile) 20 ML IVP SCH (09:00)
[2019-06-18] MEDS ORDERED: [UNRECOGNIZED DRUG - OTHER] PO SCH (09:00)
[2019-06-18 09:04] LABS: Platelet Count 96 K/mcL (140-400)
[2019-06-18 09:08] LABS: BUN/Creatinine Ratio 18 (6-26); Blood Urea Nitrogen 13 mg/dL (6-20); Calcium 8.2 mg/dL (8.6-10.3); Carbon Dioxide 21 mEq/L (23-29); Chloride 110 mEq/L (98-107); Glucose 164 mg/dL (70-105); Magnesium 1.9 mg/dL (1.6-2.6); Osmolality,Calculated 288 (280-300); Potassium 3.7 mEq/L (3.5-5.1); Sodium 137 mEq/L (136-145); eGFR For African Americans > 60 (> 60); eGFR For Non-African Americans > 60 (> 60)
[2019-06-18] MEDS: Acetaminophen 325 MG TABLET PO PRN ×2 (09:12→21:40)
[2019-06-18] MEDS: ceFAZolin 2,000 MG in 0.9 % Sodium Chloride 100 ML IVPB SCH ×2 (17:01→23:46)
[2019-06-19] MEDS: Ipratropium/Albuterol Neb 3 ML IH SCH ×4 (03:08→22:03)
[2019-06-19 05:22] LABS: Hematocrit 34.2 % (37.5-50.1); Hemoglobin 11.4 g/dL (12.9-16.9); Mean Corpuscular HGB Conc 33.3 g/dL (31.6-35.5); Mean Corpuscular Hemoglobin 31.8 pg (28.0-33.3); Mean Corpuscular Volume 95.3 fL (83.0-100.0); Mean Platelet Volume 11.4 fL (9.4-12.4); Platelet Count 114 K/mcL (140-400); Red Blood Count 3.59 M/mcL (4.19-5.50); Red Cell Distribution Width 14.2 % (11.5-14.5); White Blood Count 7.3 K/mcL (4.3-11.1)
[2019-06-19 05:41] LABS: BUN/Creatinine Ratio 18 (6-26); Blood Urea Nitrogen 15 mg/dL (6-20); Calcium 7.7 mg/dL (8.6-10.3); Carbon Dioxide 22 mEq/L (23-29); Chloride 111 mEq/L (98-107); Glucose 136 mg/dL (70-105); Osmolality,Calculated 289 (280-300); Potassium 3.2 mEq/L (3.5-5.1); Sodium 138 mEq/L (136-145); eGFR For African Americans > 60 (> 60); eGFR For Non-African Americans > 60 (> 60)
[2019-06-19] MEDS: Nicotine 14 MG PATCH.TD24 TD SCH (09:59)
[2019-06-19] MEDS: Sulfamethoxazole/Trimeth SS 1 TAB PO SCH (09:59)
[2019-06-19] MEDS: ceFAZolin 2,000 MG in 0.9 % Sodium Chloride 100 ML IVPB SCH ×2 (10:00→18:11)
[2019-06-19] MEDS: Patient Taking Own Medication 1 EACH PO SCH (10:01)
[2019-06-19] MEDS: Acetaminophen 325 MG TABLET PO PRN (18:10)
[2019-06-20] MEDS: ceFAZolin 2,000 MG in 0.9 % Sodium Chloride 100 ML IVPB SCH ×2 (00:28→07:25)
[2019-06-20] MEDS: Ipratropium/Albuterol Neb 3 ML IH SCH ×3 (03:52→15:26)
[2019-06-20 06:42] LABS: Hematocrit 39.3 % (37.5-50.1); Mean Corpuscular Volume 93.6 fL (83.0-100.0)
[2019-06-20 06:44] LABS: Basophils % 0.4 %; Eosinophils # 0.3 K/mcL (0.0-0.6); Eosinophils % 5.8 %; Hemoglobin 13.3 g/dL (12.9-16.9); Immature Platelets 4.2 % (1.1-6.1); Lymphocytes # 0.4 K/mcL (0.6-4.6); Lymphocytes % 8.2 %; Mean Corpuscular HGB Conc 33.8 g/dL (31.6-35.5); Mean Corpuscular Hemoglobin 31.7 pg (28.0-33.3); Monocytes # 0.5 K/mcL (0.0-1.3); Monocytes % 10.6 %; Neutrophils # 3.7 K/mcL (1.6-8.9); Platelet Count 137 K/mcL (140-400); Red Cell Distribution Width 14.5 % (11.5-14.5)
[2019-06-20 06:57] LABS: Alanine Aminotransferase 6 Units/L (7-52); Albumin 3.1 g/dL (3.5-5.7); Alkaline Phosphatase 66 Units/L (34-104); Aspartate Amino Transferase 8 Units/L (13-39); BUN/Creatinine Ratio 14 (6-26); Bilirubin,Total 0.3 mg/dL (0.3-1.0); Blood Urea Nitrogen 11 mg/dL (6-20); Calcium 8.3 mg/dL (8.6-10.3); Carbon Dioxide 25 mEq/L (23-29); Chloride 105 mEq/L (98-107); Globulin 3.2 g/dL (2.4-3.5); Glucose 84 mg/dL (70-105); Magnesium 1.9 mg/dL (1.6-2.6); Osmolality,Calculated 283 (280-300); Potassium 3.8 mEq/L (3.5-5.1); Sodium 137 mEq/L (136-145); Total Protein 6.3 g/dL (6.4-8.9); eGFR For African Americans > 60 (> 60); eGFR For Non-African Americans > 60 (> 60)
[2019-06-20] MEDS: Nicotine 14 MG PATCH.TD24 TD SCH (07:25)
[2019-06-20] MEDS: Sulfamethoxazole/Trimeth SS 1 TAB PO SCH (07:25)
[2019-06-20] MEDS: Patient Taking Own Medication 1 EACH PO SCH (07:26)
[2019-06-20] MEDS ORDERED: *HR* Midazolam HCl 5 MG/5 ML VIAL IVP PRN (10:09)
[2019-06-20] MEDS ORDERED: Lidocaine Viscous Oral Soln 15 ML SOLUTION MM PRN (10:09)
[2019-06-20] MEDS ORDERED: 0.9 % Sodium Chloride 500 ML IVC ONE (10:09)
[2019-06-20] MEDS: *HR* FentaNYL (PF) 100 MCG/2 ML VIAL IVP PRN ×2 (10:35→10:40)
[2019-06-20 14:31] VITALS: BP 111/71
== END 2019-06-20 18:08 | disposition other institution (70) | DRG 974 ==
LOC: ICNU → SUATTDRO 06-17 02:08 → 3ANU 06-17 19:32
PROVIDERS: ADMIT Internal Medicine; ATTEND Internal Medicine